=== PATIENT | female | born 1955 | race Caucasian/White ===

== ENCOUNTER 2017-11-24 06:56 | Day surgery (SDC) | payer OTHER ==
[~2017-11-24] VITALS: Ht 170.2 cm; Wt 8484.0 kg
[~2017-11-24 06:56] MED LIST: ADULT ASPIRIN R81 MG; ATEN25; CHLO25B; EZET10; GABA100; LOSARTAN POTAS100 MG
== END 2017-11-24 09:14 | disposition home or self-care (01) ==
LOC: ORSCSDS 06:56
PROVIDERS: Internal Medicine Gastroenterology
PROC: 0DBH8ZX Excision of Cecum, Via Natural or Artificial Opening Endoscopic, Diagnostic (ICD-10-PCS; principal; 2017-11-24 08:30)
PROC: 0DBK8ZX Excision of Ascending Colon, Via Natural or Artificial Opening Endoscopic, Diagnostic (ICD-10-PCS; principal; 2017-11-24 08:30)
PROC: 0DBL8ZX Excision of Transverse Colon, Via Natural or Artificial Opening Endoscopic, Diagnostic (ICD-10-PCS; principal; 2017-11-24 08:30)
PROC: 0DBE8ZX Excision of Large Intestine, Via Natural or Artificial Opening Endoscopic, Diagnostic (ICD-10-PCS; principal; 2017-11-24 08:30)
DX: R19.7 Diarrhea, unspecified (principal); D12.2 Benign neoplasm of ascending colon; K63.5 Polyp of colon; K64.8 Other hemorrhoids; K57.30 Diverticulosis of large intestine without perforation or abscess without bleeding; K62.5 Hemorrhage of anus and rectum; R10.32 Left lower quadrant pain; Z83.71 Family history of colonic polyps; E78.2 Mixed hyperlipidemia; I10 Essential (primary) hypertension; E22.1 Hyperprolactinemia; F34.1 Dysthymic disorder; Z79.82 Long term (current) use of aspirin; Z79.899 Other long term (current) drug therapy; Z87.891 Personal history of nicotine dependence
CPT/HCPCS: 88305; J0330; J1980; J2405; J7120

== ENCOUNTER → 2023-01-27 | Outpatient (CLI) | payer OTHER ==
[~2023-01-27] MED LIST changes: +AMLO5 PO; +ATEN25 PO; +HYDR1TAB94 PO; +LEVO750 PO; +SPIR25 PO
[2023-01-27 08:47] LABS: BASOPHILS ABSOLUTE AUTO 0.15 K/mm3 (0.00-0.23); BASOPHILS PERCENT AUTO 1 % (0-2); EOSINOPHILS ABSOLUTE AUTO 0.11 K/mm3 (0.00-0.68); EOSINOPHILS PERCENT AUTO 1 % (0-6); Hematocrit 45.1 % (33.0-51.0); Hemoglobin 15.6 g/dL (11.5-16.0); IMMATURE GRAN ABSOLUTE AUTO 0.23 K/mm3 (0.00-0.10); IMMATURE GRAN PERCENT AUTO 1 % (0-1); LYMPHOCYTES ABSOLUTE AUTO 4.29 K/mm3 (0.84-5.20); LYMPHOCYTES PERCENT AUTO 20 % (21-46); MONOCYTES ABSOLUTE AUTO 1.95 K/mm3 (0.16-1.47); MONOCYTES PERCENT AUTO 9 % (4-13); Mean Corpuscular HGB 29.9 pg (26.0-34.0); Mean Corpuscular HGB Conc 34.6 g/dL (31.5-36.5); Mean Corpuscular Volume 86 fL (80-100); NEUTROPHILS ABSOLUTE AUTO 14.33 K/mm3 (1.96-9.15); NEUTROPHILS PERCENT AUTO 68 % (41-73); Platelet Count 678 K/mm3 (150-400); RDW Coefficient Variation 13.3 % (11.7-14.2); RDW Standard Deviation 41.1 fL (35.1-46.3); Red Blood Cell Count 5.22 M/mm3 (3.80-5.20); White Blood Cell Count 21.06 K/mm3 (4.00-11.30)
[2023-01-27 09:00] LABS: Albumin, Blood 3.1 g/dL (3.4-5.0); Albumin/Globulin Ratio 0.7 (0.8-1.8); Bilirubin, Total 0.4 mg/dL (0.1-1.0); Calcium, Blood 9.8 mg/dL (8.5-10.1); Creatinine, Blood 0.91 mg/dL (0.40-1.00); Globulin, Blood 4.2 g/dL (2.2-4.0); Potassium, Blood 3.3 mmol/L (3.5-5.5); Total Protein, Blood 7.3 g/dL (6.4-8.2)
== END | disposition home or self-care (01) ==
LOC: LAB SHORT 08:40 → LAB 08:40
PROVIDERS: Family Medicine
DX: R10.32 Left lower quadrant pain (principal)
CPT/HCPCS: 80053; 83690; 85025

== ENCOUNTER 2023-02-05 03:50 | Inpatient (IN) | payer OTHER ==
[2023-02-05] VITALS (14 sets, daily range): BP systolic 95–156; BP diastolic 70–83
[~2023-02-05] VITALS: Ht 170.2 cm; Wt 75.8 kg
[~2023-02-05 03:50] MED LIST changes: +AMOCLA875 PO; +Acetaminophen650 M1 PO; +POLYETHYLENE G500 G1 PO; +VISBIOME 112.51 EACH PO
[2023-02-05 04:17] LABS: BASOPHILS ABSOLUTE AUTO 0.07 K/mm3 (0.00-0.23); BASOPHILS PERCENT AUTO 1 % (0-2); EOSINOPHILS ABSOLUTE AUTO 0.04 K/mm3 (0.00-0.68); EOSINOPHILS PERCENT AUTO 0 % (0-6); Hematocrit 45.3 % (33.0-51.0); Hemoglobin 15.3 g/dL (11.5-16.0); IMMATURE GRAN ABSOLUTE AUTO 0.05 K/mm3 (0.00-0.10); IMMATURE GRAN PERCENT AUTO 1 % (0-1); LYMPHOCYTES PERCENT AUTO 17 % (21-46); MONOCYTES ABSOLUTE AUTO 0.84 K/mm3 (0.16-1.47); MONOCYTES PERCENT AUTO 8 % (4-13); Mean Corpuscular HGB Conc 33.8 g/dL (31.5-36.5); Mean Corpuscular Volume 86 fL (80-100); Mean Platelet Volume 9.1 fL (9.1-12.4); NEUTROPHILS PERCENT AUTO 74 % (41-73); Platelet Count 573 K/mm3 (150-400); RDW Coefficient Variation 13.3 % (11.7-14.2); RDW Standard Deviation 41.7 fL (35.1-46.3); Red Blood Cell Count 5.27 M/mm3 (3.80-5.20)
[2023-02-05 04:38] LABS: Albumin/Globulin Ratio 0.6 (0.8-1.8); Bilirubin, Total 0.8 mg/dL (0.1-1.0); Bun/Creatinine Ratio 8.5 (12.0-20.0); Creatinine, Blood 0.71 mg/dL (0.40-1.00); Globulin, Blood 4.7 g/dL (2.2-4.0); Total Protein, Blood 7.7 g/dL (6.4-8.2)
--- NOTE | 2023-02-05 08:50 | NUR ---
ASSUMED CARE REPORT FROM LEELEE ALMENDAREZ IN ED, WAITING FOR PT TO ARRIVE TO MEDICAL FLOOR
--- NOTE | 2023-02-05 12:38 | NUR ---
PT INTO SDS VIA SRUTHI. History, Chart, Medications and Allergies reviewed before start of procedure. Pre-Op teaching done. Pt verbalizes understanding. Patient confirms NPO status and agrees with scheduled surgery. Lungs clear T/O to Auscultation. PT HAS 1 20 G IV IN RAC FLUSHES EASILY AND 1 20G IV IN LAC FLUSHES EASILY. LAC IV IS A FIELD START AND PT STATES THAT "IT WAS BURING EARLIER" BUT DENIES PAIN NOW W/FLUSH, NO INFILTRATION NOTED.
--- NOTE | 2023-02-05 17:41 | NUR ---
SHIFT SUMMARY PT WAS EDUCATED REGARDING FIRE SAFETY, DENIES HAVING ANY SOURCE OF IGNITION ON PERSON, VISITORS DENY THE SAME. PT WAS NPO FOR MY SHIFT, WENT TO SURGERY AND REMAINED UNTIL THIS NOTE.
--- NOTE | 2023-02-05 18:40 | NUR ---
ARRIVAL TO ROOM 231 PATIENT TO ROOM VIA GURNEY, TRANSFERRED TO BED VIA SLIDER SHEET. X4 LAP SITES TO ABDOMEN W/ DERMABOND, C/D/I. OSTOMY TO LEFT SIDE, STOMA APPEARS PINK AND MOIST, NO OUTPUT. SCANT AMOUNT OF RECTAL BLEEDING NOTED ON PAD BENEATH PATIENT. GARCES IN PLACE DRAINING TO GRAVITY, STAT LOCK PLACED AT THIS TIME. PATIENTS MAIN COMPLAINT AT THIS TIME IS ABDOMINAL & RECTAL CRAMPING. ORIENTED TO ROOM & CALL LIGHT, NOTIFIED OF ROOM TRANSFER PER PATIENTS REQUEST. REPORT GIVEN TO SUGEY ALMENDAREZ.
[2023-02-06 03:51] VITALS: BP 131/59
[2023-02-06 04:21] LABS: Hematocrit 36.6 % (33.0-51.0); Hemoglobin 12.1 g/dL (11.5-16.0); Mean Corpuscular HGB 28.9 pg (26.0-34.0); Mean Corpuscular HGB Conc 33.1 g/dL (31.5-36.5); Mean Corpuscular Volume 87 fL (80-100); Mean Platelet Volume 9.1 fL (9.1-12.4); Platelet Count 479 K/mm3 (150-400); RDW Coefficient Variation 13.4 % (11.7-14.2); RDW Standard Deviation 42.9 fL (35.1-46.3); Red Blood Cell Count 4.19 M/mm3 (3.80-5.20); White Blood Cell Count 16.44 K/mm3 (4.00-11.30)
[2023-02-06 04:51] LABS: Bun/Creatinine Ratio 14.9 (12.0-20.0); Calcium, Blood 8.7 mg/dL (8.5-10.1); Creatinine, Blood 0.67 mg/dL (0.40-1.00); Potassium, Blood 4.1 mmol/L (3.5-5.5)
--- NOTE | 2023-02-06 07:11 | NUR ---
SUMMARY PT REPORTS ADEQUATE PAIN CONTROL USING DILAUID.GARCES WITH 350 ML TONIGHT. WILL NEED MONITORING CLOSELY ON OUTPUT.PT REPORTED NAUSEA INITIALLY POSTOP, BUT VERB NO FURTHER TONIGHT.OSTOMY WITH DRK RED FLUID OUTPUT ONLY.
[2023-02-06 07:38] VITALS: BP 126/62
[2023-02-06 15:39] VITALS: BP 108/59
--- NOTE | 2023-02-06 18:59 | NUR ---
SHIFT SUMMARY PT A&OX4, VSS/RA, MEGAN PO CLD (WILL ADV TO REG IN AM PER PT REQ - WANTED TO TAKE IT SLOW TODAY), VOIDING, AMB SBA, UP TO CHAIR T/O SHIFT, PAIN MANAGED. POD1 LOY LAP SIG COLECTOMY W/COLOSTOMY, LAP SITES CDI, OSTOMY WITH BROWN STOOL OUT. WILL REPORT TO ONCOMING NOC RN.
[2023-02-06 19:58] VITALS: BP 118/59
--- NOTE | 2023-02-07 00:23 | NUR ---
REPORT GIVEN TO SUGEY TO ASSUME CARE OF PT AT THIS TIME. PT DENIES NEEDS AT THIS TIME AND IS RESTING IN BED. FIRE RISK ASSESSED THIS SHIFT, PT EDUCATED ON FIRE RISK AND IGNITION SOURCES. PT DENIES HAVING IGNITION SOURCES.
--- NOTE | 2023-02-07 01:32 | NUR ---
ASSUMED CARE OF PT.
[2023-02-07 03:04] VITALS: BP 133/65
--- NOTE | 2023-02-07 03:47 | NUR ---
SUMMARY PATIENT MORE ALERT AND DIRECTABLE THIS AM THAN PREVIOUS IN THE SHIFT. UP TO THE BSC TO VOID 1 ASSIST, EPIDURAL DRESSING REENFORCED. PATIENT REPORTS NO ACUTE EVENTS THIS SHIFT, VSS. IV FLUIDS AND ABX RUNNING. SITTER IN ROOM AND BED ALARM ON. WILL REPORT TO DAY NURSE.
[2023-02-07 05:08] LABS: Hematocrit 33.9 % (33.0-51.0); Hemoglobin 11.4 g/dL (11.5-16.0); Mean Corpuscular HGB 29.4 pg (26.0-34.0); Mean Corpuscular HGB Conc 33.6 g/dL (31.5-36.5); Mean Corpuscular Volume 87 fL (80-100); Mean Platelet Volume 9.3 fL (9.1-12.4); Platelet Count 459 K/mm3 (150-400); RDW Coefficient Variation 13.8 % (11.7-14.2); RDW Standard Deviation 43.7 fL (35.1-46.3); Red Blood Cell Count 3.88 M/mm3 (3.80-5.20); White Blood Cell Count 12.03 K/mm3 (4.00-11.30)
[2023-02-07 05:25] LABS: Bun/Creatinine Ratio 18.1 (12.0-20.0); Calcium, Blood 8.6 mg/dL (8.5-10.1); Creatinine, Blood 0.66 mg/dL (0.40-1.00); Potassium, Blood 3.7 mmol/L (3.5-5.5)
--- NOTE | 2023-02-07 06:55 | NUR ---
SUMMARY PT TEARFUL THIS AM OVER OSTOMY. ENCOURAGED.
[2023-02-07 07:39] VITALS: BP 125/64
[2023-02-07 14:33] VITALS: BP 118/66
[2023-02-07 19:05] VITALS: BP 106/58
--- NOTE | 2023-02-07 19:49 | NUR ---
SHIFT SUMMARY PT A&OX4, VSS/RA, MEGAN PO REG DIET - INCREASED IN INTAKE FOR LUNCH AND DINNER, PAIN MANAGED, AMB SBA TO BRP, VOIDING, SHOWERED TODAY/NEW APPLIANCE APPLIED, PT SEEMS MORE AT EASE WITH MANAGING OSTOMY, [employer] ORDERED TODAY, EDU AND ENC PT TO WATCH VIDEOS ON [employer] WEBSITE. WILL REPORT TO ONCEVERETTE OJEDA RN.
--- NOTE | 2023-02-08 03:06 | NUR ---
SHIFT SUMMARY PT HAS RESTED WELL T/O NIGHT. INDEP TO RESTROOM. PT INDEPENDENTLY BURPING OSTOMY AND STILL ENCOURAGING AND EDUCATING ON EMPTYING OSTOMY. DARK BROWN STOOL PRESENT IN BAG. LAP SITES X3 TO ABD REMAIN CDI. IV SL + ABX. MEGAN REG DIET. 1 ROXICODONE + TYLENOL FOR PAIN MANAGEMENT. REPORT GIVEN TO ARELI ALMENDAREZ TO ASSUME CARE AT THIS TIME. CALL LIGHT WITHIN REACH.
[2023-02-08 04:44] LABS: Hematocrit 33.5 % (33.0-51.0); Hemoglobin 10.8 g/dL (11.5-16.0); Mean Corpuscular HGB 28.6 pg (26.0-34.0); Mean Corpuscular HGB Conc 32.2 g/dL (31.5-36.5); Mean Corpuscular Volume 89 fL (80-100); Mean Platelet Volume 9.2 fL (9.1-12.4); Platelet Count 445 K/mm3 (150-400); RDW Coefficient Variation 13.6 % (11.7-14.2); RDW Standard Deviation 44.6 fL (35.1-46.3); Red Blood Cell Count 3.77 M/mm3 (3.80-5.20); White Blood Cell Count 9.38 K/mm3 (4.00-11.30)
[2023-02-08 04:56] VITALS: BP 127/66
[2023-02-08 07:48] VITALS: BP 128/64
[2023-02-08 14:31] LABS: Source, Urine Clean Catch
[2023-02-08 14:37] LABS: Appearance, Urine Clear (Clear); Bilirubin, Urine Neg (Neg); Blood, Urine 5+ (Neg); Color, Urine Amber (P-Yellow); Glucose Qualitative, Urine Neg (Neg); Ketones, Urine 3+ (Neg); Leukocyte Esterase, Urine 1+ (Neg); Nitrite, Urine Neg (Neg); Protein, Urine 2+ (Neg); Specific Gravity, Urine 1.025 (1.003-1.022); Urobilinogen, Urine NORM (Normal)
[2023-02-08 14:50] LABS: Bacteria Mod /hpf; Hyaline Casts 0-2 /lpf (0-2); Red Blood Cells, Urine TNTC /hpf (0-2); Squamous Epithelial Cells Mod /hpf (Few); Transitional Epithelial Cells Few /hpf (0-Rare); White Blood Cells, Urine 25-50 /hpf (0-5)
[2023-02-08 14:52] LABS: Calcium Oxalate Crystals Mod /hpf
[2023-02-08 15:04] VITALS: BP 126/61
--- NOTE | 2023-02-08 16:37 | NUR ---
SHIFT SUMMARY POD 3 ROBO LAP SIGMOID COLECTOMY PT PAIN CONTROLLED PER EMAR. SHE HAS BEEN UP INDEPENDTLY IN ROOM AND AMBULATING IN THE HALLS. TOLERATING DIET WELL. SHE HAS BEEN BURPING AND EMPTYING HER OSTOMY WITH ENCOURAGEMENT. PT AND SPOUSE ACTIVELY RESEARCHING OSTOMY CARE AND ASKING MANY QUESTIONS. CONTINUING TO EDUCATE T/O SHIFT. SOFT BROWN OUTPUT DURING SHIFT. CONTINUES TO HAVE SLIGHT BLEEDING WITH URINATION. REPORTS SOME DISCOMFORT WITH VOIDING. PLAN IS TO CONTINUE WITH EDUCATION AND DISCHARGE AFTE THE WEEKEND.
[2023-02-08 20:45] VITALS: BP 128/63
[2023-02-09 03:26] VITALS: BP 128/68
[2023-02-09 05:18] LABS: Hematocrit 30.4 % (33.0-51.0); Hemoglobin 10.1 g/dL (11.5-16.0); Mean Corpuscular HGB 28.9 pg (26.0-34.0); Mean Corpuscular HGB Conc 33.2 g/dL (31.5-36.5); Mean Corpuscular Volume 87 fL (80-100); Mean Platelet Volume 9.4 fL (9.1-12.4); Platelet Count 464 K/mm3 (150-400); RDW Coefficient Variation 13.4 % (11.7-14.2); RDW Standard Deviation 42.2 fL (35.1-46.3); White Blood Cell Count 8.12 K/mm3 (4.00-11.30)
--- NOTE | 2023-02-09 05:40 | NUR ---
SHIFT SUMMARY NO ACUTE CHANGES NOTED THROUGH THE NIGHT, PT REMAINS A&O X4, ON RA, VSS, PAIN MNGD WITH PO MEDS, TOLERATING PO INTAKE, PT HAS EMPTIED OSTOMY ON HER OWN, OSTOMY IS PRODUCING DARK BROWN LIQUID STOOL, URINE REMAINS TEA COLORED, NO INCREASE IN VAGINAL BLEEDING PER PT, INDEPENDENT IN ROOM, WCTM & REPORT TO DAY RN, CALL LIGHT IN REACH.
[2023-02-09 05:57] LABS: Bun/Creatinine Ratio 13.5 (12.0-20.0); Calcium, Blood 8.5 mg/dL (8.5-10.1); Creatinine, Blood 0.59 mg/dL (0.40-1.00); Potassium, Blood 3.5 mmol/L (3.5-5.5)
[2023-02-09 07:16] VITALS: BP 137/71
[2023-02-09 15:34] VITALS: BP 125/67
--- NOTE | 2023-02-09 16:34 | NUR ---
SHIFT SUMMARY POD 4 ROBO LAP SIG COLECTOMY PT REPORTS PAIN MANAGED PER EMAR, SHE HAS BEEN EMPTYING AND BURPING INDEPENDENTLY. PT AND SPOUSE ASKING LOTS OF QUESTIONS ABOUT CHANGING AND ARE LOOKING FORWARD TO MORE EDUCATION PRIOR TO DISCHARGE. LAP SITES REMAIN CDI, STOMA PINK AND BEEFY WITH SOFT, BROWN OUTPUT. PT CONTINUES TO HAVE DISCOMFORT WITH URINATION, SHE STATES IT IMPROVES WHEN SHE DRINKS MORE WATER. CT SCAN DONE TODAY.
[2023-02-09 20:22] VITALS: BP 133/67
[2023-02-10 05:32] VITALS: BP 149/84
--- NOTE | 2023-02-10 05:56 | NUR ---
SHIFT SUMMARY NO ACUTE CHANGES THROUGH THE NIGHT, PT IS A&O X4, INDEPENDENT IN THE ROOM, VSS, ON RA, TOLERATING PO INTAKE, VOIDING WNL, NO BLOOD REPORTED DURING URINATION , DARK BROWN LIQUID STOOL NOTED IN OSTOMY, PT IS MANAGING OSTOMY, ARCADIO RN WILL BE IN TODAY TO FINALIZE OSTOMY EDUCATION. PAIN MANAGED WITH 5 MG OXYCODONE/TYLENOL PER EMAR. PT IS RESTING QUIETLY THIS MORNING IN BED, RESP UNLABORED, CALL LIGHT IN REACH.
[2023-02-10 07:04] VITALS: BP 138/76
[2023-02-10] MEDS ORDERED: OXAYDO5 M1 PO (11:47)
--- NOTE | 2023-02-10 13:14 | NUR ---
discharged reviewed dc instructions w/pt; verbalized understanding. dc'd iv, catheter intact. pt left unit in wc w/possessions, ostomy supplies and dc paperwork in hand, accompanied by spouse to car outside.
== END 2023-02-10 12:55 | disposition home or self-care (01) | DRG 330 ==
LOC: ER 03:50 → ICUE 06:16 → MEDS 06:16 → SURS 19:00
PROVIDERS: Emergency Medicine; Internal Medicine; Surgery; ADMIT Internal Medicine
PROC: 0D1N4Z4 Bypass Sigmoid Colon to Cutaneous, Percutaneous Endoscopic Approach (ICD-10-PCS; 2023-02-05)
PROC: 0UN44ZZ Release Uterine Supporting Structure, Percutaneous Endoscopic Approach (ICD-10-PCS; 2023-02-05)
PROC: 0UNF4ZZ Release Cul-de-sac, Percutaneous Endoscopic Approach (ICD-10-PCS; 2023-02-05)
PROC: 0DBN4ZZ Excision of Sigmoid Colon, Percutaneous Endoscopic Approach (ICD-10-PCS; 2023-02-05)
PROC: 8E0W4CZ Robotic Assisted Procedure of Trunk Region, Percutaneous Endoscopic Approach (ICD-10-PCS; 2023-02-05)
PROC: 8E0W4CZ Robotic Assisted Procedure of Trunk Region, Percutaneous Endoscopic Approach (ICD-10-PCS; 2023-02-05)
PROC: 0U7 Female Reproductive System, Dilation (ICD-10-PCS; principal; 2023-02-05 12:00)
DX: K57.20 Diverticulitis of large intestine with perforation and abscess without bleeding (principal); K56.600 Partial intestinal obstruction, unspecified as to cause; I10 Essential (primary) hypertension; E78.5 Hyperlipidemia, unspecified; R31.9 Hematuria, unspecified; N73.6 Female pelvic peritoneal adhesions (postinfective); N83.312 Acquired atrophy of left ovary; N95.2 Postmenopausal atrophic vaginitis; Z93.3 Colostomy status; Z90.721 Acquired absence of ovaries, unilateral; Z90.79 Acquired absence of other genital organ(s); Z90.49 Acquired absence of other specified parts of digestive tract; Z90.10 Acquired absence of unspecified breast and nipple; Z88.2 Allergy status to sulfonamides; Z86.018 Personal history of other benign neoplasm; Z79.2 Long term (current) use of antibiotics; Z79.899 Other long term (current) drug therapy; Z87.19 Personal history of other diseases of the digestive system; Z98.51 Tubal ligation status
CPT/HCPCS: 36415; 74177; 74178; 80048; 80053; 81001; 83690; 85025; 85027; 87086; 88307; 94760; 96361; 96365-59; 96375; 99285-25; A9270; J1100; J1170; J1650; J1885; J2185; J2270; J2405; J2543; J2704; J3010; J7030; J7050; J7120; Q9967

== ENCOUNTER 2023-08-05 09:30 | Day surgery (SDC) | payer OTHER ==
[~2023-08-05] VITALS: Ht 170.2 cm; Wt 80.4 kg
[~2023-08-05 09:30] MED LIST changes: +OXAYDO5 M1 PO
[2023-08-05] MEDS ORDERED: Aspir 8181 MG PO (09:51)
[2023-08-05] MEDS ORDERED: IBUP200 (10:05)
[2023-08-05] MEDS ORDERED: LISI20 PO (10:53)
[2023-08-05 12:06] VITALS: BP 100/59
--- NOTE | 2023-08-05 12:08 | NUR ---
08/05/23 1208 Alpa Thurman IV DC'D, CATH INTACT. PT TOLERATED WELL. GAUZE/COBAN IN PLACE
== END 2023-08-05 12:08 | disposition home or self-care (01) ==
LOC: ORSCSDS 09:30
PROVIDERS: Surgery
PROC: 0DJD8ZZ Inspection of Lower Intestinal Tract, Via Natural or Artificial Opening Endoscopic (ICD-10-PCS; principal; 2023-08-05 11:00)
PROC: 0DBM8ZX Excision of Descending Colon, Via Natural or Artificial Opening Endoscopic, Diagnostic (ICD-10-PCS; principal; 2023-08-05 11:00)
PROC: 0DBK8ZX Excision of Ascending Colon, Via Natural or Artificial Opening Endoscopic, Diagnostic (ICD-10-PCS; principal; 2023-08-05 11:00)
PROC: 0DBH8ZX Excision of Cecum, Via Natural or Artificial Opening Endoscopic, Diagnostic (ICD-10-PCS; principal; 2023-08-05 11:00)
DX: Z12.11 Encounter for screening for malignant neoplasm of colon (principal); Z86.010 Personal history of colon polyps; Z87.19 Personal history of other diseases of the digestive system; Z93.3 Colostomy status; D12.0 Benign neoplasm of cecum; D12.2 Benign neoplasm of ascending colon; K63.5 Polyp of colon; K57.30 Diverticulosis of large intestine without perforation or abscess without bleeding; E78.5 Hyperlipidemia, unspecified; I10 Essential (primary) hypertension; Z79.899 Other long term (current) drug therapy; Z79.82 Long term (current) use of aspirin; Z87.891 Personal history of nicotine dependence
CPT/HCPCS: 88305; J2405; J2704; J7120

== ENCOUNTER 2023-08-06 05:42 | Inpatient (IN) | payer OTHER ==
[2023-08-06] VITALS (18 sets, daily range): BP systolic 111–140; BP diastolic 60–85
[~2023-08-06] VITALS: Ht 170.2 cm; Wt 81.4 kg
[~2023-08-06 05:42] MED LIST changes: +Aspir 8181 MG PO; +IBUP200; +LISI20 PO
[2023-08-06] MEDS ORDERED: Acetaminophen 500 MG Tab PO SCH (06:20)
[2023-08-06] MEDS ORDERED: CefOXitin Sodium 2,000 MG in NS 100 ML IV SCH ×2 (06:20→11:05)
[2023-08-06] MEDS ORDERED: Lactated Ringer's 1,000 ML IV SCH (06:20)
[2023-08-06] MEDS ORDERED: Heparin Sodium,Porcine 5,000 UNIT/0.5 ML SDV SC ONE (06:25)
[2023-08-06] MEDS ORDERED: Indocyanine Green 25 MG Vial IV ONE (06:25)
--- NOTE | 2023-08-06 06:45 | NUR ---
Ambulatory in Day Surgery History, Chart, Medications and Allergies reviewed before start of procedure.Lungs clear T/O to Auscultation. Patient confirms NPO status and agrees with scheduled surgery. Patient reports completing Chlorhexadine shower X2 prior to admission to hospital.Surgical site prepped with 2% Chlorhexidine cloth wipe.
[2023-08-06] MEDS ORDERED: FentaNYL Citrate 50 MCG/ML 2 ML Injection ONE ×2 (06:53→12:12)
[2023-08-06] MEDS ORDERED: propofoL 20 ML IV ONE (06:53)
[2023-08-06] MEDS ORDERED: Sugammadex Sodium 200 MG/2ML SDV (100 MG/ML) ONE (06:53)
[2023-08-06] MEDS ORDERED: Lidocaine HCl 2% 20 ML MDV ONE (06:55)
[2023-08-06] MEDS ORDERED: Ondansetron HCl 2 MG / ML 2ML Vial IV PRN ×2 (06:55→12:05)
[2023-08-06] MEDS ORDERED: Midazolam HCl 1MG / ML 2ML Vial IV PRN (06:55)
[2023-08-06] MEDS ORDERED: Dexamethasone Sod Phos 10 MG/ML 1ML VIAL ONE (06:55)
[2023-08-06] MEDS ORDERED: Rocuronium Bromide 10 MG/ML 5ML Injection IV ONE (06:55)
[2023-08-06] MEDS ORDERED: Ondansetron HCl 2 MG / ML 2ML Vial ONE (06:55)
[2023-08-06] MEDS ORDERED: Metoclopramide HCl 5MG / ML 2ML Vial IV PRN (06:55)
[2023-08-06] MEDS ORDERED: Lidocaine HCl 1% 5 ML SYR INJ ONE (07:00)
[2023-08-06] MEDS ORDERED: FentaNYL Citrate 50 MCG/ML 2 ML Injection IV PRN ×3 (07:00)
[2023-08-06] MEDS ORDERED: HYDROmorphone HCl/Pf 1MG SYR IV PRN ×2 (07:00→12:05)
[2023-08-06] MEDS ORDERED: Bupivacaine 0.5% HCl 5 MG/ML 30MLVIAL ONE (07:15)
[2023-08-06] MEDS ORDERED: Glycopyrrolate 0.2 MG/ML 5ML VIAL ONE (08:01)
[2023-08-06] MEDS ORDERED: Acetaminophen 325 MG TABLET PO PRN (12:05)
[2023-08-06] MEDS ORDERED: FLU VACC QS2023-24(6MOS UP)/PF 60 MCG/0.5 ML SYRINGE IM SCH (12:05)
[2023-08-06] MEDS ORDERED: OxyCODONE HCL 5 MG TAB PO PRN (12:05)
--- NOTE | 2023-08-06 13:15 | NUR ---
PATIENT ARRIVED FROM PACU TODAY. POD 0 LAP COLOSTOMY REVERSAL PATIENT IS A&OX4. PATIENT DENIES PAIN AT THIS TIME. HER ABD HAS X3 LAP SITES WITH WOUND GLUE THAT ARE C/D/I. HER LLQ ABD HAS A MEPLIEX WHERE THE OSTOMY WAS THAT IS ALSO C/D/I. PATIENT DENIES NAUSEA OR VOMITING AT THIS TIME. GARCES IS DRAINING PER GRAVITY. SHE IS TOLERATING SMALL AMOUNTS OF PO INTAKE OF CLEAR FLUIDS. SHE IS LAYING IN BED WITH CALL LIGHT IN REACH AND AT BEDSIDE.
--- NOTE | 2023-08-06 16:00 | NUR ---
SHIFT SUMMARY: POD 0 COLOSTOMY REVERSAL PATIENT IS A&OX4. PATIENTS PAIN IS MANAGED WITH PO OXY AT THIS TIME. HER ABD HAS X3 LAP SITES WITH WOUND GLUE THAT ARE C/D/I WELL X1 ABD SITE FROM OLD OSTOMY THAT HAS MEPLIEX IN PLACE THAT IS ALSO C/D/I. ABD IS TENDER TO PALPATE WITH HYPOACTIVE BOWEL TONES. PATIENT IS TOLERATING SMALL AMOUNTS OF CLEAR LIQUIDS PO. GARCES IS DRAINING PER GRAVITY WITH YELLOW URINE OUTPUT. PATIENT IS LAYING IN BED WITH CALL LIGHT IN REACH.
--- NOTE | 2023-08-06 16:42 | NUR ---
patient has x4 lap sites with wound glue that are c/d/i and her old ostomy site has the mepliex that is c/d/i as well.
[2023-08-06] MEDS ORDERED: Magnesium Oxide 400 MG Tab PO SCH (21:00)
[2023-08-07 04:16] LABS: Hematocrit 37.5 % (33.0-51.0); Hemoglobin 12.7 g/dL (11.5-16.0); Mean Corpuscular HGB 29.9 pg (26.0-34.0); Mean Corpuscular HGB Conc 33.9 g/dL (31.5-36.5); Mean Corpuscular Volume 88 fL (80-100); Platelet Count 342 K/mm3 (150-400); RDW Standard Deviation 44.5 fL (35.1-46.3); Red Blood Cell Count 4.25 M/mm3 (3.80-5.20); White Blood Cell Count 12.23 K/mm3 (4.00-11.30)
[2023-08-07 04:21] VITALS: BP 122/64
[2023-08-07 04:53] LABS: Bun/Creatinine Ratio 16.2 (12.0-20.0); Calcium, Blood 8.9 mg/dL (8.5-10.1); Creatinine, Blood 0.74 mg/dL (0.40-1.00); Magnesium, Blood 1.8 mg/dL (1.6-2.4); Potassium, Blood 3.5 mmol/L (3.5-5.5)
[2023-08-07 07:43] VITALS: BP 133/71
--- NOTE | 2023-08-07 07:48 | NUR ---
SUMMARY PT WITH REPORT OF INIMAL DISCOMFORT LAST NIGHT.NO C/O NAUSEA.TOLERATING PO FLUIDS AND BIES JELLO FOR PO PAIN MED X 1. GARCES STARTED WITH SMALL AMNTS MABER URINE WHICH IS IMPROVING TO CLEAR YELLOW WITH ENC TO DRINK GATORADE.
--- NOTE | 2023-08-07 08:12 | NUR ---
DR GALEANA IN TO SEE PT.
[2023-08-07] MEDS ORDERED: Atenolol 25 MG Tab PO SCH (09:00)
[2023-08-07] MEDS ORDERED: Enoxaparin 40 MG/0.4 ML SYR SC SCH (09:00)
[2023-08-07] MEDS ORDERED: Spironolactone 25 MG Tab PO SCH (09:00)
[2023-08-07] MEDS ORDERED: AmLODIPine Besylate 5 MG Tab PO SCH (09:00)
[2023-08-07 14:18] VITALS: BP 112/61
--- NOTE | 2023-08-07 18:03 | NUR ---
summary no acute changes t/o shift. pt ambulated in doshi. tolerating small amounts of full lqiuds. medicated per orders for abdminal pain. has denied nausea. voiding after medrano dc'd. call light in reach.
[2023-08-07 18:35] VITALS: BP 125/64
[2023-08-08 03:47] VITALS: BP 128/65
[2023-08-08 07:10] VITALS: BP 134/67
--- NOTE | 2023-08-08 07:19 | NUR ---
SHIFT SUMMARY NOC. PT POD [address] GALEANA. PT LAP SITES AND DRESSING FROM PREVIOUS OSTOMY ARE C/D/I. PT IS VOIDING URINE AND TOLERATING PO INTAKE. PT AMBULATED TO THE BATHROOM WITH STANDBY ASSIST X1. PT MEDICATED FOR PAIN WITH RELIEF. PT RESTED WITH EYES CLOSED AND CALL LIGHT IN REACH.
[2023-08-08 14:37] VITALS: BP 134/83
--- NOTE | 2023-08-08 15:57 | NUR ---
02 SATS DROPPED AFTER 0.5MG DILAUDID. PT REC'D 0.5 MG IV DILAUDID PER ORDERS FOR ABD PAIN. AFTERWARD, PT FELL ASLEEP AND SATS DROPPED TO MID 80S. PLACED ON 2L NC AND SATS NOW 96%. CALL LIGHT IN REACH.
--- NOTE | 2023-08-08 16:37 | NUR ---
SUMMARY PT HAS HAD A TOTAL OF THREE BMS THIS SHIFT. PT NOT FEELING WELL THIS AFTERNOON; MEDICATED PER ORDERS FOR NAUSEA AND PAIN. PT SATS DROPPED WHEN WENT TO SLEEP AFTER IV DILAUDID GIVEN PER ORDERS; PLACED ON 2L NC. SATS NOW MID TO HIGH 90S. PT WALKED IN YI ONCE THIS SHIFT. DIET BACKED TO CLEAR LIQUIDS. PT TOLERATING SM AMOUNTS, STATES THINGS "DON'T TASTE RIGHT." PT RESTING IN BED, CALL LIGHT IN REACH. TURNING CARE OVER TO ELIEL Mcgovern
--- NOTE | 2023-08-08 16:59 | NUR ---
THIS NURSE IS ASSUMING CARE OF PATIENT AFTER RECIEVING REPORT FROM GABBIE RN. THIS NURSE WENT TO CHECK ON PATIENT AND INTRODUCE MYSELF TO PATIENT SAYING THAT THIS NURSE WOULD BE ASSUMING CARE FROM GABBIE. PATIENT VERBALIZED UNDERSTANDING WITH NO NEEDS OR QUESTIONS AT THIS TIME. PATIENTS ABD HAS THE X4 LAP SITES WITH WOUND GLUE THAT ARE C/D/I WITH HER OLD OSTOMY INCISION HAS A MEPLIEX THAT IS ALSO C/D/I. PATIENT IS CURRENTLY LAYING IN BED WITH CALL LIGHT IN REACH AND AT BEDSIDE.
[2023-08-08 20:36] VITALS: BP 136/65
[2023-08-09 03:29] VITALS: BP 112/61
--- NOTE | 2023-08-09 06:38 | NUR ---
SHIFT SUMMARY PT IS POD#3 FOR A ROBOTIC LAPAROSCOPIC REVERSAL OF AN END COLOSTOMY. PT'S LAP SITES ARE C/D/I. PT HAS BEEN ABLE TO TOLERATE HER CLEAR LIQUID DIET THIS SHIFT W/O BECOMING NAUSEOUS. ONLY PO MEDS GIVEN THIS SHIFT FOR PAIN. VITAL SIGNS HAVE BEEN STABLE THROUGHOUT THE SHIFT AND THE PT HAS BEEN GETTING UP INDEPENDENTLY TO USE THE BATHROOM W/NO ISSUES. NO ACUTE EVENTS OVERNIGHT. BED IS IN LOWEST POSITION, CALL LIGHT IS WITHIN REACH.
[2023-08-09 07:19] VITALS: BP 126/59
[2023-08-09 14:19] VITALS: BP 131/67
[2023-08-09] MEDS ORDERED: Calcium Carbonate 500 MG Tab Chew PO PRN (14:40)
--- NOTE | 2023-08-09 19:40 | NUR ---
SHIFT SUMMARY POD2 LOY LAP COLOSTOMY TAKEDOWN, A/OX4, VSS, TOLERATING CLEARS AND ADVANCING TO FULLS ORDERED AND PATIENT REQUEST, PAIN MANAGED PER EMAR. NO ACUTE EVENTS THIS SHIFT, CALL LIGHT IN REACH.
[2023-08-09 21:48] VITALS: BP 126/68
[2023-08-10 05:07] VITALS: BP 126/62
[2023-08-10 07:14] VITALS: BP 116/67
--- NOTE | 2023-08-10 07:16 | NUR ---
SHIFT SUMMARY POD 3-COLOSTOMY REVERSAL. MEPILEX LLQ CHANGED, 4 LAPSITES TO R SIDE ABD OPEN TO AIR c NO DRAINAGE. AOX4. VSS. AT BEGINNING OF SHIFT PT REPORTED WORSENING ABD PAIN, NAUSEA, FEELING BLOATED, NO FLATUS, STATES NO BM & FEELING SHE WAS GETTING "WORSE". MEDICATED c ZOFRAN, TYLENOL & TUMS & PT REPORTED RELIEF. THIS AM PT REPORTED FEELING "BETTER" & WANTING TO ADVANCE DIET, BUT NOT LIKING THE PUREE SOUP OPTIONS, INFORMED DAY NURSE. CALL LIGHT IN REACH.
[2023-08-10 15:34] VITALS: BP 124/61
--- NOTE | 2023-08-10 18:24 | NUR ---
SHIFT SUMMARY POD3 LOY LAP OSTOMY TAKEDOWN, A/OX4, VSS, TOLERATING PO THOUGH SHE HAS NOT HAD MUCH FOR INTAKE DUE TO HER NOT LIKING HER MENU OPTIONS, PAIN WELL MANAGED, NO BM THIS SHIFT. NO ACUTE EVENTS THIS SHIFT, CALL LIGHT IN REACH
[2023-08-10 19:47] VITALS: BP 133/68
[2023-08-11 03:51] VITALS: BP 121/67
--- NOTE | 2023-08-11 05:27 | NUR ---
POD 5 S/P COLOSTOMY REVERSAL. PT VSS T/O NIGHT. INCISIONS CDI. PO INTAKE MINIMAL, ONLY SIPS OF WATER. ABD REMAINS MOD DISTENDED, BT MORE HYPO THIS AM, PT REP NO FLATUS. PT C/O NAUSEA, AND INC PAIN THIS AM; MED PER EMAR W/REP RELIEF. URINE DARK YELLOW. PT AMB INDEP IN ROOM, MEGAN WELL. PT VERBALIZED FRUSTRATION W/PROLONGED STAY, SUPPORT AND EDUCATION CONT PRN.
[2023-08-11 08:13] VITALS: BP 150/67
[2023-08-11 11:32] LABS: BASOPHILS ABSOLUTE AUTO 0.04 K/mm3 (0.00-0.23); BASOPHILS PERCENT AUTO 0 % (0-2); EOSINOPHILS ABSOLUTE AUTO 0.08 K/mm3 (0.00-0.68); EOSINOPHILS PERCENT AUTO 1 % (0-6); Hematocrit 42.2 % (33.0-51.0); Hemoglobin 14.6 g/dL (11.5-16.0); IMMATURE GRAN ABSOLUTE AUTO 0.04 K/mm3 (0.00-0.10); IMMATURE GRAN PERCENT AUTO 0 % (0-1); LYMPHOCYTES ABSOLUTE AUTO 1.21 K/mm3 (0.84-5.20); LYMPHOCYTES PERCENT AUTO 8 % (21-46); MONOCYTES ABSOLUTE AUTO 1.27 K/mm3 (0.16-1.47); MONOCYTES PERCENT AUTO 8 % (4-13); Mean Corpuscular HGB 29.7 pg (26.0-34.0); Mean Corpuscular HGB Conc 34.6 g/dL (31.5-36.5); Mean Corpuscular Volume 86 fL (80-100); NEUTROPHILS ABSOLUTE AUTO 12.62 K/mm3 (1.96-9.15); NEUTROPHILS PERCENT AUTO 83 % (41-73); Platelet Count 470 K/mm3 (150-400); RDW Coefficient Variation 13.5 % (11.7-14.2); Red Blood Cell Count 4.91 M/mm3 (3.80-5.20); White Blood Cell Count 15.26 K/mm3 (4.00-11.30)
[2023-08-11 11:58] LABS: Albumin, Blood 2.4 g/dL (3.4-5.0); Anion Gap 6 mmol/L (6-16); Blood Urea Nitrogen 24 mg/dL (8-24); Bun/Creatinine Ratio 35.1 (12.0-20.0); CO2, Blood 30 mmol/L (21-32); Calcium, Blood 9.6 mg/dL (8.5-10.1); Chloride, Blood 99 mmol/L (98-108); Creatinine, Blood 0.68 mg/dL (0.40-1.00); Glomerular Filtration Rate 96 (60-); Glucose, Blood 126 mg/dL (70-99); Phosphorus, Blood 2.5 mg/dL (2.5-4.9); Potassium, Blood 3.5 mmol/L (3.5-5.5); Sodium, Blood 135 mmol/L (136-145)
--- NOTE | 2023-08-11 12:01 | NUR ---
PT RESTING IN BED, WENT FOR A WALK IN THE HALLS THIS AM.
--- NOTE | 2023-08-11 12:49 | NUR ---
RESTING IN BED, REFUSED LUNCH, PT HAS NO APPETITE, DENIES ANY NAUSEA AT THIS TIME, ICE CHIPS GIVEN, CONT. TO MONITOR FOR ANY CHANGES.
[2023-08-11 13:29] VITALS: BP 137/70
[2023-08-11 15:03] VITALS: BP 138/70
[2023-08-11] MEDS ORDERED: Lactated Ringer's 500 ML IV ONE (16:00)
[2023-08-11] MEDS ORDERED: Lactated Ringer's 1,000 ML IV SCH (16:00)
[2023-08-11] MEDS ORDERED: Ketorolac Tromethamine 15mg Vial IV SCH (16:00)
--- NOTE | 2023-08-11 18:08 | NUR ---
SUMMARY PT REPORTED NOT FEELING GOOD THIS AM, C/O NAUSEA IN AM, HAS REFUSED ALL TRAYS, HAS ONLY HAD ICE CHIPS AND SMALL SIPS OF WATER, REPORTS NAUSEA WAS "BETTER" AFTER BREAKFAST, AMBULATED DOWN THE HALLS AND IN ROOM, INDEPENDENT TO THE BATHROOM, DENIES PASSING ANY FLATUS, REPORTS "BURPING A LOT" AND ABD FEELS "BLOATED" AND HAVING LOWER ABD "CRAMPING" DR. GALEANA SAW PT THIS AFTERNOON, TORADOL GIVEN ORDERED W/ GOOD RELIEF OF CRAMPING, PT REPORTS FEELING BETTER THIS AFTERNOON, DENIES ANY NAUSEA BUT STILL REFUSED CLEAR LIQUID TRAYS, PT GIVEN PEDIALYTE ORDERED, NO OTHER CHANGES THIS SHIFT.
[2023-08-11 18:59] VITALS: BP 132/66
[2023-08-12] VITALS (22 sets, daily range): BP systolic 98–135; BP diastolic 59–80
[2023-08-12 04:55] LABS: BASOPHILS ABSOLUTE AUTO 0.06 K/mm3 (0.00-0.23); BASOPHILS PERCENT AUTO 0 % (0-2); EOSINOPHILS ABSOLUTE AUTO 0.16 K/mm3 (0.00-0.68); EOSINOPHILS PERCENT AUTO 1 % (0-6); Hematocrit 41.8 % (33.0-51.0); Hemoglobin 14.4 g/dL (11.5-16.0); IMMATURE GRAN PERCENT AUTO 1 % (0-1); LYMPHOCYTES ABSOLUTE AUTO 1.54 K/mm3 (0.84-5.20); LYMPHOCYTES PERCENT AUTO 10 % (21-46); MONOCYTES ABSOLUTE AUTO 1.31 K/mm3 (0.16-1.47); MONOCYTES PERCENT AUTO 9 % (4-13); Mean Corpuscular HGB 30.3 pg (26.0-34.0); Mean Corpuscular HGB Conc 34.4 g/dL (31.5-36.5); Mean Corpuscular Volume 88 fL (80-100); Mean Platelet Volume 10.3 fL (9.1-12.4); NEUTROPHILS ABSOLUTE AUTO 12.32 K/mm3 (1.96-9.15); NEUTROPHILS PERCENT AUTO 80 % (41-73); Platelet Count 548 K/mm3 (150-400); RDW Coefficient Variation 13.2 % (11.7-14.2); Red Blood Cell Count 4.75 M/mm3 (3.80-5.20); White Blood Cell Count 15.49 K/mm3 (4.00-11.30)
[2023-08-12 05:19] LABS: Bun/Creatinine Ratio 33.8 (12.0-20.0); Calcium, Blood 10.1 mg/dL (8.5-10.1); Creatinine, Blood 0.83 mg/dL (0.40-1.00); Magnesium, Blood 2.3 mg/dL (1.6-2.4); Potassium, Blood 3.7 mmol/L (3.5-5.5)
--- NOTE | 2023-08-12 07:49 | NUR ---
POD 6 S/P COLOSTOMY REVERSAL. PT VSS T/O NIGHT. DRESSINGS CDI. PT HAD SEVERAL SMALL LIQ BM THIS SHIFT. PT CONT TO REP DEC APPETITE, DENIED N/V. PT REP INC PAIN THIS AM AFTER INC ACTIVITY DURING NIGHT. PT C/O VAGINAL PAIN THIS AM. MEDICATE PER EMAR, DAY SHIFT RN UPDATED.
[2023-08-12] MEDS ORDERED: Lactated Ringer's 1,000 ML IV ONE ×2 (10:15→15:10)
--- NOTE | 2023-08-12 12:21 | NUR ---
ABD DRESSING CHANGED AFTER SHOWER, CLEANSED WITH WOUND CLEANSER, COVERED WITH MEPILEX DRESSING.
[2023-08-12] MEDS ORDERED: Lactated Ringer's 1,000 ML IV SCH ×2 (15:15→19:25)
[2023-08-12] MEDS ORDERED: Rocuronium Bromide 10 MG/ML 5ML Injection IV ONE ×4 (15:16→17:19)
[2023-08-12] MEDS ORDERED: propofoL 20 ML IV ONE (15:16)
[2023-08-12] MEDS ORDERED: Ondansetron HCl 2 MG / ML 2ML Vial ONE (15:17)
[2023-08-12] MEDS ORDERED: FentaNYL Citrate 50 MCG/ML 5 ML Injection ONE (15:17)
[2023-08-12] MEDS ORDERED: ePHEDrine Sulfate 50 MG/ML 1ML Injection ONE (15:17)
[2023-08-12] MEDS ORDERED: Dexamethasone Sod Phos 10 MG/ML 1ML VIAL ONE (15:17)
[2023-08-12] MEDS ORDERED: Bupivacaine 0.5% HCl 5 MG/ML 30MLVIAL ONE (15:21)
[2023-08-12] MEDS ORDERED: CefOXitin Sodium 2,000 MG in NS 100 ML IV SCH (15:25)
--- NOTE | 2023-08-12 15:26 | NUR ---
PT TAKEN TO DAY SURGERY FOR EMERGENT SURGERY BY DR. GALEANA PER DAY SURGERY RN VICTOR M. PT'S S.O. HERE AT BEDSIDE.
--- NOTE | 2023-08-12 15:28 | NUR ---
History, Chart, Medications and Allergies reviewed before start of procedure.Pre-Op teaching done. Pt verbalizes understanding.
[2023-08-12] MEDS ORDERED: Indocyanine Green 25 MG Vial IV ONE (15:50)
[2023-08-12] MEDS ORDERED: Labetalol HCL 5 MG/ML 4ML Injection (Single Dose) ONE (16:33)
[2023-08-12] MEDS ORDERED: Piperacillin/Tazobactam Sod 3.375 GM in NS 50 ML IV ONE (16:50)
[2023-08-12] MEDS ORDERED: Phenylephrine HCl 100 MCG/ML-NS 10MLSYR (1MG/10ML) ONE (17:04)
[2023-08-12] MEDS ORDERED: CefOXitin Sodium 2,000 MG in NS 100 ML IV ONE (17:15)
[2023-08-12] MEDS ORDERED: Metoclopramide HCl 5MG / ML 2ML Vial IV PRN (17:55)
[2023-08-12] MEDS ORDERED: HYDROmorphone HCl/Pf 1MG SYR IV PRN (17:55)
[2023-08-12] MEDS ORDERED: Ondansetron HCl 2 MG / ML 2ML Vial IV PRN (17:55)
[2023-08-12] MEDS ORDERED: FentaNYL Citrate 50 MCG/ML 2 ML Injection IV PRN ×3 (17:55)
--- NOTE | 2023-08-12 18:23 | NUR ---
SUMMARY PT DENIED ANY NAUSEA TODAY BUT C/O OF INCREASED LOWER ABD PAIN THIS AM, REPORTS HAVING BM'S LAST NIGHT, AMBULATED DOWN THE YI, TOOK A SHOWER, ABD DSG CHANGED, CT ABD ORDERED THIS AFTERNOON, THEN PT TAKEN TO THE OR BY DR. GALEANA, PT STILL CURRENTLY IN OR.
[2023-08-12] MEDS ORDERED: Sugammadex Sodium 200 MG/2ML SDV (100 MG/ML) ONE (18:54)
[2023-08-12] MEDS ORDERED: HYDROmorphone 1 MG/ML 30 ML Bag IV PRN (19:30)
[2023-08-12] MEDS ORDERED: Ipratropium/Albuterol SulF 2.5-0.5MG/3 ML Amp INH ONE (20:30)
[2023-08-12] MEDS ORDERED: Ipratropium/Albuterol SulF 2.5-0.5MG/3 ML Amp INH PRN (20:35)
[2023-08-12 20:43] LABS: Source, Urine Foley catheter
[2023-08-12 20:49] LABS: Appearance, Urine Clear (Clear); Blood, Urine 1+ (Neg); Color, Urine Amber (P-Yellow); Glucose Qualitative, Urine Neg (Neg); Ketones, Urine Neg (Neg); Leukocyte Esterase, Urine 1+ (Neg); Nitrite, Urine Pos (Neg); Protein, Urine 2+ (Neg); Urobilinogen, Urine 1+ (Normal)
[2023-08-12 20:59] LABS: Bilirubin, Urine 2+ (Neg)
[2023-08-12 21:00] LABS: Squamous Epithelial Cells Few /hpf (Few)
[2023-08-12 21:01] LABS: Amorphous Light (0-Heavy); Bacteria Many /hpf
[2023-08-13] VITALS (24 sets, daily range): BP systolic 90–131; BP diastolic 47–83
[2023-08-13] MEDS ORDERED: Piperacillin/Tazobactam Sod 3.375 GM in NS 50 ML IV SCH
[2023-08-13 04:00] LABS: Hemoglobin 15.4 g/dL (11.5-16.0); Mean Corpuscular HGB 29.3 pg (26.0-34.0); Mean Corpuscular HGB Conc 33.5 g/dL (31.5-36.5); Mean Corpuscular Volume 88 fL (80-100); Platelet Count 651 K/mm3 (150-400); RDW Coefficient Variation 13.7 % (11.7-14.2); Red Blood Cell Count 5.25 M/mm3 (3.80-5.20); White Blood Cell Count 16.52 K/mm3 (4.00-11.30)
[2023-08-13 04:19] LABS: Alanine Aminotransfer (ALT/SGP 145 U/L (12-78); Albumin, Blood 1.6 g/dL (3.4-5.0); Albumin/Globulin Ratio 0.5 (0.8-1.8); Alk Phos 149 U/L (50-136); Anion Gap 5 mmol/L (6-16); Aspartate Aminotrans (AST/SGOT 76 U/L (12-37); Blood Urea Nitrogen 31 mg/dL (8-24); CO2, Blood 25 mmol/L (21-32); Calcium, Blood 8.5 mg/dL (8.5-10.1); Chloride, Blood 104 mmol/L (98-108); Creatinine, Blood 0.86 mg/dL (0.40-1.00); Globulin, Blood 3.3 g/dL (2.2-4.0); Glomerular Filtration Rate 74 (60-); Glucose, Blood 149 mg/dL (70-99); Magnesium, Blood 2.1 mg/dL (1.6-2.4); Potassium, Blood 4.7 mmol/L (3.5-5.5); Sodium, Blood 134 mmol/L (136-145); Total Protein, Blood 4.9 g/dL (6.4-8.2); Triglycerides 87 mg/dL (30-160)
[2023-08-13 05:10] LABS: BASOPHILS PERCENT MAN 0 % (0-2); EOSINOPHILS PERCENT MAN 0 % (0-6); LYMPHOCYTES ABSOLUTE MAN 1.48 K/mm3 (0.84-5.20); LYMPHOCYTES PERCENT MAN 9 % (21-46); MYELOCYTE ABSOLUTE MAN 0.16 K/mm3 (0.00-0.00); MYELOCYTE PERCENT MAN 1 % (0-0); TOTAL CELLS COUNTED 100
[2023-08-13 05:17] LABS: BAND PERCENT MAN 38 % (0-8); METAMYELOCYTE ABSOLUTE MAN 0.49 K/mm3 (0.00-0.00); METAMYELOCYTE PERCENT MAN 3 % (0-0); MONOCYTES ABSOLUTE MAN 0.82 K/mm3 (0.16-1.47); MONOCYTES PERCENT MAN 5 % (4-13); NEUTROPHILS ABSOLUTE MAN 13.54 K/mm3 (1.96-9.15); SEG NEUTROPHILS PERCENT MAN 44 % (41-73)
--- NOTE | 2023-08-13 07:27 | NUR ---
SHIFT SUMMERY PT IS ALERT AND ORIENTED X4. PAIN HAS BEEN CONTROLLED W/LEGAL SERVICES MANAGER OVERNIGHT. NG TUBE TO ILWS HAS PUT OUT A SMALL AMOUNT OF BILE. PT WAS MEDICATED FOR NAUSEA ONCE. HE RADHA DRESSING IS C/D/I. GARCES CATH IS INTACT PATENT AND DRAINING TO GRAVITY. PT HAS BEEN AFEBRILE. ZAINAB DRAIN W/SMALL AMOUNT OF SEROSANGUINOUS OUTPUT. OSTOMY STOMA BEEFY RED W/SOME SEROSANGUINOUS DRAININGE. PT HAS BEEN SR ON THE MACHINE REPAIRMAN OVERNIGHT W/BP WNL. PT OS ON HFNC W/OXYGEN SAT >90%. PT HAS HAD NO EPISODES OF ACUTE DISTRESS OVERNIGHT AND TOLERATED TREATMENT WELL. .
[2023-08-13] MEDS ORDERED: NS 250 ML IV PRN (08:40)
--- NOTE | 2023-08-13 11:05 | NUR ---
Visited Pt. after ICU rounds. Pt. is in bed when she welcomes my visit. Spouse is at bedside. Pt. is unsettled about the failed attempt to reverse her colostomy. Facilitated a life review and listened with a calming presence and empathy. Pt. displays evidence of coming to terms with needing to use the colostomy from now on. Pastoral care and encouragement is given. Pt. verbalized gratitude for the spiritual care visit and welcomed this analyzer sales to return.
[2023-08-13] MEDS ORDERED: TPN Consult Notification XX ONE (13:20)
--- NOTE | 2023-08-13 16:55 | NUR ---
SHIFT SUMMARY NO ACUTE CHANGES THIS SHIFT. PT HAS REMAINED ALERT AND ORIENTED WHEN AWAKE. PT AWAKENS EASILY TO VOICE WHEN SLEEPING. PT HAS USED DILAUDID MANAGER PRACTICE THROUGHOUT THE SHIFT FOR ABD PAIN. PICC PLACED TO DAVID THIS MORNING. LR INFUSING AT 100 ML/HR, NS TKO, AND CPN STARTED THIS EVENING AT 75 ML/HR. PT WITH NGT IN PLACE TO LIS. PT TAKING IN SIPS OF WATER AND PEDIALYTE WELL. DR GALEANA ENCOURAGED PO INTAKE FOR PT COMFORT WITH NGT TO SUCTION. MIDLINE ABD INCISION WITH RADHA C/D/I. COLOSTOMY REMAINS BEEFY RED WITH SCANT OUTPUT NOTED. ZAINAB DRAIN REMAINS IN PLACE WITH 40 ML LIGHT RED OUTPUT NOTED. GARCES REMAINS IN PLACE WITH SMALL AMOUNT OF DARK PAM OUTPUT NOTED. PT SPOUSE AT BEDSIDE MOST OF THIS SHIFT. VITAL SIGNS HAVE REMAINED STABLE. WILL CONTINUE TO MONITOR AND REPORT OFF TO ONCOMING RN.
--- NOTE | 2023-08-13 21:08 | NUR ---
REPORT GIVEN TO ANKITA ALMENDAREZ. PT TRANSFERRED TO ROOM 224 VIA BED ON CAFE SERVER AND WITH OXYGEN IN PLACE. PT WAS IN NO ACUTE DISTRESS AND VOICED NO COMPLAINTS AT TIME OF TRANSFER. BELONGINGS WERE TAKEN WITH PT WELL CHART AND MEDICATIONS.
--- NOTE | 2023-08-13 21:21 | NUR ---
PT ARRIVED TO ROOM 224 FROM PACU. PT A/O X4, VSS. 5LHF NC IN PLACE. LUNGS CLEAR/DIM, PT DENIES SOB. PT RADHA DRESSING W/SMAMT SS DRNG, SEAL AND SX INTACT. RONA W/LIGHT SS DRNG, BULB COMPRESSED. NGT TO LIS W/GREEN DRNG, PT DENIES N/V. BT HYPO, SCANT LIGHT SS DRNG FROM OSTOMY, STOMA BEEFY RED. GARCES PATANT DRNG PAM URINE W/SLIGHT PINK TINT. TPN AND LR CONT PER ORDERS, PT USING THREE KNIFE TRIMMER PRN, REP PAIN MEGAN. PT ORIENTED TO ROOM/CALL LIGHT. AWAITING TELE BOX.
[2023-08-14 03:52] VITALS: BP 118/74
[2023-08-14 06:30] LABS: Alanine Aminotransfer (ALT/SGP 69 U/L (12-78); Albumin, Blood 1.4 g/dL (3.4-5.0); Albumin/Globulin Ratio 0.4 (0.8-1.8); Alk Phos 99 U/L (50-136); Anion Gap 2 mmol/L (6-16); Aspartate Aminotrans (AST/SGOT 27 U/L (12-37); Bilirubin, Direct 0.4 mg/dL (0.0-0.3); Bilirubin, Indirect 0.3 mg/dL (0.1-0.7); Bilirubin, Total 0.7 mg/dL (0.1-1.0); Blood Urea Nitrogen 34 mg/dL (8-24); Bun/Creatinine Ratio 55.2 (12.0-20.0); CO2, Blood 32 mmol/L (21-32); Calcium, Blood 8.1 mg/dL (8.5-10.1); Chloride, Blood 100 mmol/L (98-108); Creatinine, Blood 0.62 mg/dL (0.40-1.00); Globulin, Blood 3.3 g/dL (2.2-4.0); Glomerular Filtration Rate 98 (60-); Glucose, Blood 126 mg/dL (70-99); Magnesium, Blood 2.4 mg/dL (1.6-2.4); Potassium, Blood 3.8 mmol/L (3.5-5.5); Sodium, Blood 134 mmol/L (136-145); Total Protein, Blood 4.7 g/dL (6.4-8.2); Triglycerides 198 mg/dL (30-160)
[2023-08-14 06:32] LABS: Phosphorus, Blood 1.6 mg/dL (2.5-4.9)
--- NOTE | 2023-08-14 07:16 | NUR ---
POD 2 S/P EX LAP + COLOSTOMY. PT VSS SINCE ARRIVAL TO FLOOR, SATS >90% ON 5L HFNC. RADHA DRESSING W/SEAL AND SX INTACT. NGT W/GREEN DRNG, NO OUTPUT FROM OSTOMY. ABD SOFT TO PALP. RONA W/SMALL AMT LIGHT SS DRNG. PAIN MGD W/VEGETABLE II FARMWORKER W/REP RELIEF, PT DENIED N/V, GARCES DRNG PAM URINE. LR COMPLETED, CPN AND ABX CONT PER ORDERS.
[2023-08-14 07:46] VITALS: BP 117/65
[2023-08-14] MEDS ORDERED: Sodium Phosphate 30 MM in Dextrose 5% 500 ML IV STA (08:20)
[2023-08-14 15:27] VITALS: BP 130/69
--- NOTE | 2023-08-14 16:42 | NUR ---
[facility] OVERSEW OF RECTAL POUCH WITH END COLOSTOMY PT PAIN CONTROLLED WITH BUSINESS ANALYTICS SPECIALIST. NGT REMAINS PATENT AND DRAINING. TOLERATING CLEAR WATER AND ICE CHIPS WELL, NO NAUSEA. MIDLINE DRESSING REMAINS CDI. GARCES PATENT AND DRAINING. RONA DRAIN WITH MINIMAL DRAINAGE. TPN INFUSING PER EMAR. PT HAS BEEN EMOTIONAL DURING SHIFT, STRUGGLING WITH FUTURE PLANS AND EXPRESSING DIFFICULTY ACCEPTING THAT SHE HAS HER STOMA BACK. SPOUSE AT BEDSIDE FOR SUPPORT. PT ABLE TO STAND AND TRANSFER WELL TO CHAIR.
[2023-08-14 19:48] VITALS: BP 127/69
[2023-08-15 04:28] VITALS: BP 121/67
--- NOTE | 2023-08-15 04:52 | NUR ---
SHIFT SUMMARY POD 3 OVERSEW W/ COLOSTOMY. PT RESTED DURING THE NIGHT PAIN MANAGED WITH NUT SIFTER. TPN RUNNING ALL NIGHT. GARCES DRAINING TO GRAVITY. NG TUBE OUTPUT MINIMAL, BILE. RONA DRAINING SEROUS FLUID, BULB COMPRESSED. DENIES N/V. STOMA IS RED AND SEROUS FLUID OUTPUT, NO FLATUS. NO OTHER CONCERNS AT THIS TIME. CALL LIGHT WITHIN REACH
[2023-08-15 06:35] LABS: Magnesium, Blood 2.1 mg/dL (1.6-2.4)
[2023-08-15 06:36] LABS: Calcium, Blood 8.2 mg/dL (8.5-10.1); Creatinine, Blood 0.5 mg/dL (0.40-1.00); Phosphorus, Blood 1.8 mg/dL (2.5-4.9)
[2023-08-15 07:46] VITALS: BP 126/68
[2023-08-15] MEDS ORDERED: Sodium Phosphate 30 MM in Dextrose 5% 500 ML IV SCH (09:10)
[2023-08-15] MEDS ORDERED: Furosemide 10 MG / ML 2ML Vial IV SCH (10:00)
[2023-08-15 15:09] VITALS: BP 134/67
[2023-08-15 15:53] LABS: Bun/Creatinine Ratio 34.2 (12.0-20.0); Calcium, Blood 8.6 mg/dL (8.5-10.1); Creatinine, Blood 0.5 mg/dL (0.40-1.00); Potassium, Blood 3.9 mmol/L (3.5-5.5)
[2023-08-15] MEDS ORDERED: DiphenhydrAMINE HCl 50 MG/ML 1ML Vial IV PRN (16:55)
--- NOTE | 2023-08-15 18:32 | NUR ---
SHIFT SUMMARY POD 3 OVERSEW RECTAL POUCH WITH END COLOSTOMY PT UP TO CHAIR TWICE TODAY. OXYGEN TITRATED DOWN TO 3L, SATS 92% OR HIGHER. PT REPORTS BREATHING IMPROVED AFTER LASIX AND GETTING UP. PAIN CONTROLLED WITH EDGE ROLLER. NGT REMAINS TO LIS, DARK GREEN OUTPUT. MIDLINE RADHA REMAINS CDI. OSTOMY NO OUTPUT OR FLATUS IN BAG.
[2023-08-15 20:05] VITALS: BP 125/65
[2023-08-16 02:11] VITALS: BP 120/67
[2023-08-16 07:19] VITALS: BP 120/71
--- NOTE | 2023-08-16 08:47 | NUR ---
SHIFT SUMMARY NOC. PT A/O X4 THIS SHIFT. MIDLINE RADHA IS NOT COMPRESSED BUT IS C/D/I WITH SCANT SEROSANG DRIED DRAINAGE. RONA TUBE, GARCES, AND NG TUBES PRODUCING OUTPUT. PT MEDICATED FOR NAUSEA X1. PT HAS A WEAVING PROFESSOR PUMP WHICH IS MANAGING HER PAIN. PT ON TELE AND NSR. STOMA PRODUCING SEROUS OUTPUT, BEEFY RED IN COLOR. PT RESTED WITH EYES CLOSED AND CALL LIGHT IN REACH.
--- NOTE | 2023-08-16 10:00 | NUR ---
PT HAS A RASH ON HER ABD AROUND TO HER BACK. PT REPORTS ITCHING AND REQUESTED BENADRYL. PT ALSO STATES SHE IS ALLERGIC TO PENICILLIN AND ZOSYN IS ORDERED FOR PT. PT HAS BEEN GIVEN ZOSYN DURING THIS ADMIT AND HAS TOLERATED WELL. PT REPORTS SHE HAS HAD A RASH FOR SEVERAL DAY. DR. GALEANA'S NOTES REVIEWED, IT IS UNCLEAR IF SHE WAS AWARE THAT PT HAS A RASH. SPOKE WITH PING IN PHARMACY REGARDING ALLERGY, PING RECOMMENDED NOTIFYING DR. SMITH. DR. SMITH WAS NOTIFIED, CONTINUE WITH ZOSYN PER DR. SMITH. BENADRYL GIVEN BEFORE ZOSYN WAS ADMINISTERED.
[2023-08-16 12:50] LABS: Hematocrit 35.4 % (33.0-51.0); Mean Corpuscular HGB 30.1 pg (26.0-34.0); Mean Corpuscular HGB Conc 33.9 g/dL (31.5-36.5); Mean Corpuscular Volume 89 fL (80-100); Mean Platelet Volume 9.5 fL (9.1-12.4); Platelet Count 513 K/mm3 (150-400); RDW Coefficient Variation 13.9 % (11.7-14.2); RDW Standard Deviation 45.1 fL (35.1-46.3); Red Blood Cell Count 3.99 M/mm3 (3.80-5.20); White Blood Cell Count 31.32 K/mm3 (4.00-11.30)
--- NOTE | 2023-08-16 13:00 | NUR ---
ELEVATED WBC COUNT DR. SMITH NOTIFIED OF ELEVATED WHITE COUNT WITH LABS. PT IS NOT HAVING FEVERS, VSS WNL, PT CONDITION UNCHANGED. ABD REMAINS MILDLY DISTENDED AND PT'S PAIN CONTINUES TO BE MANAGED WITH DELI DEPARTMENT MANAGER. PER DR. SMITH NO INTERVENTION AT THIS TIME.
[2023-08-16 13:04] LABS: BAND PERCENT MAN 1 % (0-8); BASOPHILS PERCENT MAN 0 % (0-2); EOSINOPHILS ABSOLUTE MAN 0.31 K/mm3 (0.00-0.68); EOSINOPHILS PERCENT MAN 1 % (0-6); LYMPHOCYTES ABSOLUTE MAN 3.13 K/mm3 (0.84-5.20); LYMPHOCYTES PERCENT MAN 10 % (21-46); METAMYELOCYTE ABSOLUTE MAN 0.62 K/mm3 (0.00-0.00); METAMYELOCYTE PERCENT MAN 2 % (0-0); MONOCYTES ABSOLUTE MAN 1.25 K/mm3 (0.16-1.47); MONOCYTES PERCENT MAN 4 % (4-13); MYELOCYTE ABSOLUTE MAN 0.31 K/mm3 (0.00-0.00); MYELOCYTE PERCENT MAN 1 % (0-0); NEUTROPHILS ABSOLUTE MAN 25.68 K/mm3 (1.96-9.15); SEG NEUTROPHILS PERCENT MAN 81 % (41-73); TOTAL CELLS COUNTED 100
[2023-08-16 13:07] VITALS: BP 126/66
[2023-08-16 13:28] LABS: Bun/Creatinine Ratio 28.2 (12.0-20.0); Calcium, Blood 8.6 mg/dL (8.5-10.1); Creatinine, Blood 0.57 mg/dL (0.40-1.00); Magnesium, Blood 2.1 mg/dL (1.6-2.4); Phosphorus, Blood 2.6 mg/dL (2.5-4.9); Potassium, Blood 4.1 mmol/L (3.5-5.5)
[2023-08-16 15:34] VITALS: BP 112/78
--- NOTE | 2023-08-16 18:20 | NUR ---
OSTOMY APPLIANCE AND ABD DRESSING CHANGED RADHA DRESSING DID NOT APPEAR TO BE HOLDING SUCTION SO DRESSING WAS CHANGED TO MEDIPORE PER DR. SMITH. IN ORDER TO REMOVE RADHA DRESSING, DRESSING HAD TO BE REMOVED FROM RONA DRAIN AND OSTOMY APPLIANCE HAD TO BE REMOVED. STING FREE ADHESIVE REMOVER USED TO REMOVE DRESSINGS. PT'S SKIN APPEARED SOMEWHAT RED/IRRITATED UNDER OSTOMY APPLIANCE. SKIN AND INCISION CLEANSED WITH SALINE. SKIN PREP USED BEFORE DRESSINGS OR NEW APPLIANCE PLACED. CHG DRESSING PLACED OVER RONA SITE. MEDIPORE DRESSING PLACED OVER MIDLINE INCISION. 2 3/4 OVAL OSTOMY APPLIANCE WITH MOOSE WAFER PLACED.
[2023-08-16 19:04] VITALS: BP 126/68
--- NOTE | 2023-08-16 19:42 | NUR ---
SHIFT SUMMARY PT IS POD#[address] GALEANA. PAIN MANAGED WITH DILAUDID LOGISTICS CENTER MANAGER. PT HAS BEEN ALERT AND ORIENTED THIS SHIFT. ABD DRESSING, RONA DRESSING AND OSTOMY APPLIANCE CHANGED. PT HAS BEEN A 1 PERSON ASSIST WHEN OOB FOR HELP WITH LINES AND TUBES. NG TUBE REMAINS IN PLACE. BEDSIDE REPORT GIVEN TO LYNETTE ALMENDAREZ.
[2023-08-16 23:55] VITALS: BP 120/67
[2023-08-17 04:39] VITALS: BP 119/68
[2023-08-17 07:20] VITALS: BP 126/66
[2023-08-17 08:06] LABS: Hematocrit 36.3 % (33.0-51.0); Hemoglobin 12.1 g/dL (11.5-16.0); Mean Corpuscular HGB 29.4 pg (26.0-34.0); Mean Corpuscular HGB Conc 33.3 g/dL (31.5-36.5); Mean Corpuscular Volume 88 fL (80-100); Mean Platelet Volume 9.5 fL (9.1-12.4); Platelet Count 515 K/mm3 (150-400); RDW Coefficient Variation 13.9 % (11.7-14.2); RDW Standard Deviation 45.1 fL (35.1-46.3); Red Blood Cell Count 4.11 M/mm3 (3.80-5.20); White Blood Cell Count 29.09 K/mm3 (4.00-11.30)
[2023-08-17 08:17] LABS: Bun/Creatinine Ratio 39.3 (12.0-20.0); Creatinine, Blood 0.56 mg/dL (0.40-1.00); Potassium, Blood 4.2 mmol/L (3.5-5.5)
--- NOTE | 2023-08-17 08:17 | NUR ---
SHIFT SUMMARY NOC. PT A/O X4. PT NG TUBE CONNECTED TO LIS AND PRODUCING OUTPUT, RONA DRAIN PRODUCING OUTPUT. PT MEDIPORE ON THE ABDOMEN IS C/D/I. OSTOMY IS RED AND PRODUCING GAS. PT AMBULATED TO THE BEDSIDE COMMODE WELL. PT'S PAIN CONTROLLED WITH THREAD DRAWER PUMP. PT RESTED WITH EYES CLOSED AND CALL LIGHT IN REACH.
--- NOTE | 2023-08-17 08:20 | NUR ---
SHIFT SUMMARY NOC. PT A/O X4. WET TO DRY DRESSING ON ABDOMEN CHANGED X2 THIS SHIFT. PT'S PAIN CONTROLLED WITH SCHEDULED MEDICATION. PT AMBULATED TO THE BR WITH SBA. PT VOIDING AND TOLERATING PO. PT REPORTS PASSING GAS. PT REPORTED A SLIGHT TUG ON HER PICC LINE WHEN GETTING UP TO BEDSIDE COMMODE (SEE PICC MANAGEMENT FOR DETAILS), DISCUSSED WITH CROZE MACHINE OPERATOR SUGEY GOMEZ. ASSESSED LINE WITH CHARGE AND LINE DRAWS. PT DENIES PAIN AT SITE, DENIES SOB OR CP. PT RESTED WITH EYES CLOSED AND CALL LIGHT IN REACH.
[2023-08-17 08:29] LABS: BAND PERCENT MAN 6 % (0-8); BASOPHILS PERCENT MAN 0 % (0-2); EOSINOPHILS ABSOLUTE MAN 0.29 K/mm3 (0.00-0.68); EOSINOPHILS PERCENT MAN 1 % (0-6); LYMPHOCYTES % ATYPICAL MANUAL 1 % (0-0); LYMPHOCYTES ABSOLUTE MAN 2.32 K/mm3 (0.84-5.20); LYMPHOCYTES PERCENT MAN 7 % (21-46); METAMYELOCYTE ABSOLUTE MAN 0.58 K/mm3 (0.00-0.00); METAMYELOCYTE PERCENT MAN 2 % (0-0); MONOCYTES ABSOLUTE MAN 3.49 K/mm3 (0.16-1.47); MONOCYTES PERCENT MAN 12 % (4-13); NEUTROPHILS ABSOLUTE MAN 22.39 K/mm3 (1.96-9.15); SEG NEUTROPHILS PERCENT MAN 71 % (41-73); TOTAL CELLS COUNTED 100
[2023-08-17] MEDS ORDERED: Lactated Ringer's 500 ML IV ONE (11:00)
--- NOTE | 2023-08-17 11:01 | NUR ---
DR. SMITH ROUNDED AT APPROXIMATELY 1020. DISCUSSED CLAMPING NG TUBE AND ALLOWING PT TO HAVE SOME CLEAR LIQUIDS SINCE PT IS PASSING FLATUS FROM OSTOMY. PER DR. SMITH OK TO TRIAL CLAMP NG TUBE TODAY. PT HAS A MILD RASH ON HER ABD AND BACK, SHE ALSO HAS REPORTED ALLERGY TO [facility] AND IS GETTING ZOSYN. PT IS TOLERATING ZOSYN WELL AND HAS BEEN PRE TREATED WITH BENADRYL. DISCUSSED ABX RECOMMENDATIONS WITH DR. SMITH IF HE CHOOSES TO CHANGE ABX. PER DR. SMITH PLAN IS TO CONTINUE WITH ZOSYN AT THIS TIME.
--- NOTE | 2023-08-17 11:06 | NUR ---
ABD MIDLINE DRESSING CHANGED, CLEAN MEDIPORE PLACED. CHG TEGADERM PLACED OVER RONA DRAIN.
[2023-08-17 16:05] VITALS: BP 135/93
[2023-08-17 19:23] VITALS: BP 136/72
--- NOTE | 2023-08-17 19:58 | NUR ---
PT REPORTED NAUSEA AND HEARTBURN AT 1706. NG TUBE RECONNECTED TO LOW INTERMITTENT SUCTION. PT'S SYMPTOMS RESOLVED WITHOUT FURTHER INTERVENTION.
--- NOTE | 2023-08-17 20:08 | NUR ---
SHIFT SUMMARY PT IS POD# 5. PT IS HAVING A SMALL AMOUNT FLATUS FROM HER OSTOMY. NG TUBE WAS CLAMPED FOR SEVERAL HOURS TODAY BUT WAS UNABLE TO TOLERATE, NG IS NOW RE-CONNECTED TO TO LOW INTERMITTENT SUCTION. PAIN MANAGED WITH WORK CHECKER. PT IS A 1 ASSIST WITH TRANSFERS, SHE REQUIRES ASSISTANCE WITH LINES AND TUBES. BEDSIDE REPORT GIVEN TO BELEN ALMENDAREZ.
[2023-08-18 02:12] VITALS: BP 121/67
[2023-08-18 07:15] VITALS: BP 137/71
--- NOTE | 2023-08-18 08:00 | NUR ---
SHIFT SUMMARY NOC. PT A/O X4. PT MIDLINE MEDIPORE C/D/I. STOMA PRODUCING GAS THIS SHIFT BUT NO OUTPUT. CPN RUNNING. PT AMBULATED IN YI X2 THIS SHIFT AND TOLERATED WELL. PT MEDICATED FOR NAUSEA X1 WITH RELIEF. PAIN CONTROLLED WITH SECURITY INSTALLATION TECHNICIAN. PT NG TUBE CONNECTED TO LIS AND PRODUCING GREEN OUTPUT. PT ROAN DRAIN HAD MINIMAL SEROUS OUTPUT. PT AFEBRILE AND RESTED WITH EYES CLOSED AND CALL LIGHT IN REACH.
[2023-08-18 08:38] LABS: Hematocrit 36.2 % (33.0-51.0); Hemoglobin 12.2 g/dL (11.5-16.0); Mean Corpuscular HGB 29.3 pg (26.0-34.0); Mean Corpuscular HGB Conc 33.7 g/dL (31.5-36.5); Mean Corpuscular Volume 87 fL (80-100); Mean Platelet Volume 9.3 fL (9.1-12.4); Platelet Count 560 K/mm3 (150-400); RDW Coefficient Variation 14.1 % (11.7-14.2); RDW Standard Deviation 45.3 fL (35.1-46.3); Red Blood Cell Count 4.16 M/mm3 (3.80-5.20); White Blood Cell Count 27.19 K/mm3 (4.00-11.30)
[2023-08-18 09:06] LABS: Albumin, Blood 1.7 g/dL (3.4-5.0); Anion Gap 2 mmol/L (6-16); Blood Urea Nitrogen 23 mg/dL (8-24); Bun/Creatinine Ratio 38.1 (12.0-20.0); CO2, Blood 31 mmol/L (21-32); Calcium, Blood 9.1 mg/dL (8.5-10.1); Chloride, Blood 98 mmol/L (98-108); Glomerular Filtration Rate 99 (60-); Glucose, Blood 112 mg/dL (70-99); Magnesium, Blood 2.5 mg/dL (1.6-2.4); Phosphorus, Blood 3.5 mg/dL (2.5-4.9); Potassium, Blood 4.4 mmol/L (3.5-5.5); Sodium, Blood 131 mmol/L (136-145)
[2023-08-18 09:14] LABS: BAND PERCENT MAN 4 % (0-8); BASOPHILS ABSOLUTE MAN 0.27 K/mm3 (0.00-0.23); BASOPHILS PERCENT MAN 1 % (0-2); EOSINOPHILS ABSOLUTE MAN 0.27 K/mm3 (0.00-0.68); EOSINOPHILS PERCENT MAN 1 % (0-6); LYMPHOCYTES ABSOLUTE MAN 1.63 K/mm3 (0.84-5.20); LYMPHOCYTES PERCENT MAN 6 % (21-46); METAMYELOCYTE ABSOLUTE MAN 0.54 K/mm3 (0.00-0.00); METAMYELOCYTE PERCENT MAN 2 % (0-0); MONOCYTES ABSOLUTE MAN 3.53 K/mm3 (0.16-1.47); MONOCYTES PERCENT MAN 13 % (4-13); MYELOCYTE ABSOLUTE MAN 1.35 K/mm3 (0.00-0.00); MYELOCYTE PERCENT MAN 5 % (0-0); NEUTROPHILS ABSOLUTE MAN 18.76 K/mm3 (1.96-9.15); OTHER CELL PERCENT MAN 1 % (0-0); PLASMA CELL ABSOLUTE MAN 0.27 K/mm3 (0.00-0.00); PLASMA CELLS PERCENT MAN 1 % (0-0); PROMYELOCYTE ABSOLUTE MAN 0.27 K/mm3 (0.00-0.00); PROMYELOCYTE PERCENT MAN 1 % (0-0); SEG NEUTROPHILS PERCENT MAN 65 % (41-73); TOTAL CELLS COUNTED 100
[2023-08-18] MEDS ORDERED: Magnesium Hydroxide Conc 10 ML UDC PT SCH (13:30)
[2023-08-18 14:39] VITALS: BP 131/75
--- NOTE | 2023-08-18 18:09 | NUR ---
SHIFT SUMMARY POD 6 PT HAS VERY SMALL AMOUNT OF MUCOUSY BROWN STOOL IN BAG. AFTER ADMINISTRATION OF M.O.M. CONTINUES TO HAVE GAS IN BAG. PT WORKED WELL WITH THERAPY TODAY. STRENGTH IMPROVING. VOIDING WELL. PAIN CONTROLLED WITH SKIP PIT WORKER. NGT REMAINS TO LIS. PULLED BACK APPROX 5CM PER SURGEON RECCOMENDATION AFTER CT SCAN. PT TOLERATED WELL, NEW DRESSING TO NOSE. RONA DRAIN BULB REMAINS COMPRESSED. PT USING INCENTIVE SPIROMETER.
[2023-08-18 19:37] VITALS: BP 128/71
[2023-08-19 04:07] VITALS: BP 127/69
[2023-08-19 04:37] LABS: Hematocrit 35.3 % (33.0-51.0); Hemoglobin 11.8 g/dL (11.5-16.0); Mean Corpuscular HGB 29.6 pg (26.0-34.0); Mean Corpuscular HGB Conc 33.4 g/dL (31.5-36.5); Mean Corpuscular Volume 89 fL (80-100); Mean Platelet Volume 9.4 fL (9.1-12.4); Platelet Count 569 K/mm3 (150-400); RDW Coefficient Variation 14.2 % (11.7-14.2); RDW Standard Deviation 45.7 fL (35.1-46.3); Red Blood Cell Count 3.98 M/mm3 (3.80-5.20); White Blood Cell Count 24.53 K/mm3 (4.00-11.30)
[2023-08-19 05:51] LABS: BAND PERCENT MAN 7 % (0-8); BASOPHILS PERCENT MAN 0 % (0-2); EOSINOPHILS ABSOLUTE MAN 0.24 K/mm3 (0.00-0.68); EOSINOPHILS PERCENT MAN 1 % (0-6); LYMPHOCYTES ABSOLUTE MAN 1.22 K/mm3 (0.84-5.20); LYMPHOCYTES PERCENT MAN 5 % (21-46); METAMYELOCYTE ABSOLUTE MAN 0.49 K/mm3 (0.00-0.00); METAMYELOCYTE PERCENT MAN 2 % (0-0); MONOCYTES ABSOLUTE MAN 1.22 K/mm3 (0.16-1.47); MONOCYTES PERCENT MAN 5 % (4-13); MYELOCYTE ABSOLUTE MAN 1.71 K/mm3 (0.00-0.00); MYELOCYTE PERCENT MAN 7 % (0-0); NEUTROPHILS ABSOLUTE MAN 19.37 K/mm3 (1.96-9.15); PLASMA CELL ABSOLUTE MAN 0.24 K/mm3 (0.00-0.00); PLASMA CELLS PERCENT MAN 1 % (0-0); SEG NEUTROPHILS PERCENT MAN 72 % (41-73); TOTAL CELLS COUNTED 100
[2023-08-19 06:31] LABS: Bun/Creatinine Ratio 40.8 (12.0-20.0); Calcium, Blood 8.6 mg/dL (8.5-10.1); Creatinine, Blood 0.61 mg/dL (0.40-1.00); Potassium, Blood 4.4 mmol/L (3.5-5.5)
[2023-08-19 07:32] VITALS: BP 134/63
--- NOTE | 2023-08-19 08:28 | NUR ---
SHIFT SUMMARY NOC. PT A/O X4. PT MIDLINE MEDIPORE C/D/I WITH LIGHT SEROUS DRAINAGE. STOMA PRODUCING GAS AND LIQUID AND SOFT MINIMAL OUTPUT. PT UP TO BATHROOM THIS SHIFT. CPN RUNNING. PAIN CONTROLLED BY [employer] COORDINATOR, PT USING REDUCED AMOUT SEE EMAR. PT NG TUBE CONNECTED TO LIS AND PRODUCING OUTPUT. RONA DRAIN HAS MINIMAL SEROUS OUTPUT. PT ABLE TO TOLERATE NG CLAMPED TO GO TO BR FOR 20 MINUTES WITHOUT NAUSEA. MEDICATED WITH BENADRYL FOR ITCHING. PT RESTED WITH EYES CLOSED AND CALL LIGHT IS REACH.
[2023-08-19] MEDS ORDERED: Furosemide 10 MG / ML 2ML Vial IV SCH (09:00)
[2023-08-19] MEDS ORDERED: Magnesium Hydroxide Conc 10 ML UDC PT SCH (09:00)
[2023-08-19 14:20] VITALS: BP 124/97
--- NOTE | 2023-08-19 16:41 | NUR ---
ngt removed at this time. pt tolerated well. denied nausea while clamped since 1030. has been ambulating well t/o the shift. pain well controlled with paper guillotine operator. ostomy appliance changed today. stoma is pink and beefy. skin tear found under appliance on removal with dried blood. pt unsure of when it happened. bandaid applied. midline dressing changed. medipore applied. incision cdi and well approximated. pt attitude improving throughout the shift smiling and up in the chair more frequently. tolerating clear liquids well. cpn continues to infuse.
--- NOTE | 2023-08-19 17:35 | NUR ---
PT PLACED BACK ON OXYGEN ONCE SHE LAYED BACK DOWN, SATS DROPPED TO 88-89% WHILE AT REST. 2L NASAL CANULA, SATS 94% ONCE ON OXYGEN.
[2023-08-19 19:44] VITALS: BP 130/68
--- NOTE | 2023-08-20 03:59 | NUR ---
SHIFT SUMMARY NO ACUTE CHANGES. PT RESTED WELL THIS SHIFT. USING DILAUDID TRAFFIC ANALYST FOR PAIN MANAGEMENT. MIDLINE MEDIPORE DRESSING REMAINS UNCHANGED WITH A SMALL AMOUNT OF OLD DRY SEROUS. RONA WITH SMALL AMOUNT OF SEROUS. OSTOMY STARTED PUTTING OUT LIQUID BROWN STOOL AND CONT TO PUT OUT FLATUS. TOLERATING SIPS OF CLEAR LIQS. PT INDEP TO BSC. IV ABX + CPN INFUSING PER ORDERS. USES CALL LIGHT APPROPRIATELY.
[2023-08-20 04:34] LABS: Hematocrit 34.9 % (33.0-51.0); Hemoglobin 11.6 g/dL (11.5-16.0); Mean Corpuscular HGB 29.6 pg (26.0-34.0); Mean Corpuscular HGB Conc 33.2 g/dL (31.5-36.5); Mean Corpuscular Volume 89 fL (80-100); Mean Platelet Volume 9.6 fL (9.1-12.4); Platelet Count 615 K/mm3 (150-400); RDW Coefficient Variation 14.3 % (11.7-14.2); Red Blood Cell Count 3.92 M/mm3 (3.80-5.20); White Blood Cell Count 23.39 K/mm3 (4.00-11.30)
[2023-08-20 04:47] VITALS: BP 116/61
[2023-08-20 04:56] LABS: Bun/Creatinine Ratio 44.9 (12.0-20.0); Calcium, Blood 8.5 mg/dL (8.5-10.1); Creatinine, Blood 0.58 mg/dL (0.40-1.00); Potassium, Blood 4.4 mmol/L (3.5-5.5)
[2023-08-20 05:52] LABS: BAND PERCENT MAN 9 % (0-8); BASOPHILS PERCENT MAN 0 % (0-2); EOSINOPHILS ABSOLUTE MAN 0.23 K/mm3 (0.00-0.68); EOSINOPHILS PERCENT MAN 1 % (0-6); LYMPHOCYTES PERCENT MAN 9 % (21-46); METAMYELOCYTE PERCENT MAN 3 % (0-0); MONOCYTES ABSOLUTE MAN 0.93 K/mm3 (0.16-1.47); MONOCYTES PERCENT MAN 4 % (4-13); MYELOCYTE ABSOLUTE MAN 1.16 K/mm3 (0.00-0.00); MYELOCYTE PERCENT MAN 5 % (0-0); NEUTROPHILS ABSOLUTE MAN 18.24 K/mm3 (1.96-9.15); SEG NEUTROPHILS PERCENT MAN 69 % (41-73); TOTAL CELLS COUNTED 100
[2023-08-20 07:37] VITALS: BP 130/76
--- NOTE | 2023-08-20 10:29 | NUR ---
Pt. is awake in bed and welcomes my visit. Spouse is present at bedside. Facilitate a review of Pt. progress. Pt. verbalized an expectation to be discharged home on Friday. Pt. displayed evidence of engagement and awareness. Pastoral encouragement is given. Prayed with Pt. Pt. verbalized gratitude for the spiritual care visit.
[2023-08-20 10:53] VITALS: BP 121/73
[2023-08-20 15:14] VITALS: BP 121/72
--- NOTE | 2023-08-20 18:09 | NUR ---
SUMMARY: PT IS POD8 EX LAP WITH RESECTION OF ANASTOMOSIS AND COLOSTOMY. A/O, VSS. SURGICAL SITES WNL. DARK BROWN OUTPUT FROM STOMA, PT EMPTIED BAG X1 HERSELF. DENIES N/V. RONA WNL, MINIMAL OUTPUT. NOT EMPTIED TODAY. PT HAS HAD SMALL BITES OF FULL LIQ DIET AND TONIGHT ATE ABOUT HALF OF REGULAR DIET TRAY. TPN TO DC TOMORROW. ABLE TO WEAN PT OFF DILAUDID STEM DRYER MAINTAINER SOME. GAVE OXYCODONE AND TYLENOL, PT ONLY PUSHED BUTTON X3 FOR BREAKTHROUGH PAIN (3MG TOTAL). STEM DRYER MAINTAINER CLEARED.PT TOOK X2 WALKS IN THE HALLS WITH . PLAN IS FOR DC FRIDAY WITH HH. NO ACUTE SAFETY CONCERNS, PT USES CALL LIGHT AND MAKES NEEDS KNOW.
[2023-08-20 19:32] VITALS: BP 127/74
[2023-08-21 02:47] VITALS: BP 136/66
--- NOTE | 2023-08-21 05:03 | NUR ---
SHIFT SUMMARY POD 9 EX LAP c RESECTION OF ANASTOMOSIS, END COLOSTOMY & APPY. NO ACUTE CHANGES OVERNIGHT. VS WNL FOR PT. TOLERATING MINIMAL REGULAR DIET. MIDLINE MEDIPORE c SCANT SEROUS DRAINAGE, OTHERWISE C/D/I. OSTOMY c OUTPUT OF BROWN LIQUID STOOL, PT MANAGING INDEPENDENTLY. AMBULATES INDEPENDENTLY, USE OF BEDSIDE COMMODE R/T LINE LIMITATIONS. MEDICATED FOR PAIN PER EMAR; ATTEMPTING TO WEAN TOWARDS ORAL PAIN CONTROL, PT NEEDED MINIMAL USE OF MOBILE HEAVY EQUIPMENT MECHANIC. ANTICIPATED D/C c HH. CALL LIGHT WITHIN REACH, BED IN LOWEST POSITION, WILL REPORT TO DAY RN.
[2023-08-21 05:06] LABS: Triglycerides 173 mg/dL (30-160)
[2023-08-21 07:19] VITALS: BP 119/67
[2023-08-21] MEDS ORDERED: NS 50 ML IV ONE (08:23)
[2023-08-21] MEDS ORDERED: Spironolactone 25 MG Tab PO SCH (09:00)
[2023-08-21] MEDS ORDERED: OxyCODONE HCL 5 MG TAB PO PRN (10:35)
[2023-08-21 13:59] VITALS: BP 122/70
--- NOTE | 2023-08-21 16:50 | NUR ---
ABD MIDLINE DRESSING CHANGED. BANDAID OVER RONA DRAIN REMOVAL SITE CHANGED.
--- NOTE | 2023-08-21 18:04 | NUR ---
SHIFT SUMMARY TPN DISCONTINUED TODAY, PT IS TOLERATING A REGULAR DIET. PT IS HAVING OUTPUT FROM HER OSTOMY. PT IS DOING HER OSTOMY CARE. PT IS TOLERATING PO PAIN MEDICATION, INSPECTOR WEIGHTS AND MEASURES DISCONTINUED. PT AMBULATES IN [place] INDEPENDENTLY.
[2023-08-21 18:55] VITALS: BP 116/64
[2023-08-22 04:30] VITALS: BP 115/73
[2023-08-22 04:48] LABS: Hematocrit 35.2 % (33.0-51.0); Hemoglobin 11.4 g/dL (11.5-16.0); Mean Corpuscular HGB 29.2 pg (26.0-34.0); Mean Corpuscular HGB Conc 32.4 g/dL (31.5-36.5); Mean Corpuscular Volume 90 fL (80-100); Mean Platelet Volume 9.5 fL (9.1-12.4); Platelet Count 635 K/mm3 (150-400); RDW Coefficient Variation 14.3 % (11.7-14.2); RDW Standard Deviation 47.2 fL (35.1-46.3); White Blood Cell Count 21.63 K/mm3 (4.00-11.30)
[2023-08-22 05:05] LABS: Bun/Creatinine Ratio 39.7 (12.0-20.0); Calcium, Blood 8.8 mg/dL (8.5-10.1); Creatinine, Blood 0.61 mg/dL (0.40-1.00); Potassium, Blood 4.7 mmol/L (3.5-5.5)
--- NOTE | 2023-08-22 05:40 | NUR ---
SHIFT SUMMARY POD 10 EX LAP c RESECTION OF ANASTOMOSIS, END COLOSTOMY & APPY. NO ACUTE CHANGES OVERNIGHT. VS WNL FOR PT. TOLERATING REGULAR DIET. MIDLINE MEDIPORE & BANDAID OVER OLD RONA SITE C/D/I. OSTOMY c OUTPUT OF BROWN, LIQUID STOOL, PT MANAGING INDEPENDENTLY. AMBULATES/VOIDS INDEPENDENTLY. MEDICATED FOR PAIN PER EMAR, PT REPORTS PAIN TOLERABLE. ANTICIPATED D/C c HH. CALL LIGHT WITHIN REACH, BED IN LOWEST POSITION, WILL REPORT TO DAY RN.
[2023-08-22 06:00] LABS: BAND PERCENT MAN 2 % (0-8); BASOPHILS PERCENT MAN 0 % (0-2); EOSINOPHILS PERCENT MAN 0 % (0-6); LYMPHOCYTES ABSOLUTE MAN 3.02 K/mm3 (0.84-5.20); LYMPHOCYTES PERCENT MAN 14 % (21-46); METAMYELOCYTE ABSOLUTE MAN 0.64 K/mm3 (0.00-0.00); METAMYELOCYTE PERCENT MAN 3 % (0-0); MONOCYTES ABSOLUTE MAN 1.73 K/mm3 (0.16-1.47); MONOCYTES PERCENT MAN 8 % (4-13); MYELOCYTE ABSOLUTE MAN 1.08 K/mm3 (0.00-0.00); MYELOCYTE PERCENT MAN 5 % (0-0); NEUTROPHILS ABSOLUTE MAN 15.14 K/mm3 (1.96-9.15); SEG NEUTROPHILS PERCENT MAN 68 % (41-73); TOTAL CELLS COUNTED 100
[2023-08-22 07:21] VITALS: BP 119/68
--- NOTE | 2023-08-22 10:00 | NUR ---
DR. GALEANA NOTIFIED THAT STOMA APPEARS PALE. DR. GALEANA ASSESSED STOMA SITE AND STATED IT LOOKS OK AND TO CONTINUE WITH PLAN FOR DISCHARGE. PT IS PRODUCING STOOL AND FLATUS.
[2023-08-22] MEDS ORDERED: TYLENOL325 MG PO (12:31)
[2023-08-22] MEDS ORDERED: OXYC5 PO (12:33)
--- NOTE | 2023-08-22 14:00 | NUR ---
PRIOR TO DISCHARGE OSTOMY APPLIANCE WAS CHANGED. VIEW OF STOMA WAS OBSCURED BY MOOSE WAFER. WHEN OSTOMY APPLIANCE WAS REMOVED STOMA IS RED AND BEEFY.
[2023-08-22 14:18] VITALS: BP 114/63
--- NOTE | 2023-08-22 14:55 | NUR ---
PICC removed WNL, D/C instructions reviewed with patient and . Ostomy supplies, dressings and bandaides provided. Patient and spouse verbalize understanding and deny questions. Assisted to car via WC with belongings.
== END 2023-08-22 14:45 | disposition home health service (06) | DRG 330 ==
LOC: MEDS 05:42 → SURS 05:42 → MEDS 06:04 → PRE IP 07:30 → SURS 12:43 → ICUE 08-12 19:17 → SURS 08-13 21:12
PROVIDERS: Surgery; ADMIT Surgery
PROC: 8E0W4CZ Robotic Assisted Procedure of Trunk Region, Percutaneous Endoscopic Approach (ICD-10-PCS; 2023-08-06)
PROC: 0DBM4ZZ Excision of Descending Colon, Percutaneous Endoscopic Approach (ICD-10-PCS; principal; 2023-08-06 07:30)
PROC: 0DJD4ZZ Inspection of Lower Intestinal Tract, Percutaneous Endoscopic Approach (ICD-10-PCS; 2023-08-12)
PROC: 0DBM0ZZ Excision of Descending Colon, Open Approach (ICD-10-PCS; 2023-08-12)
PROC: 0DTJ0ZZ Resection of Appendix, Open Approach (ICD-10-PCS; 2023-08-12)
DX: Z43.3 Encounter for attention to colostomy (principal); E87.1 Hypo-osmolality and hyponatremia; K56.609 Unspecified intestinal obstruction, unspecified as to partial versus complete obstruction; K91.89 Other postprocedural complications and disorders of digestive system; I10 Essential (primary) hypertension; D12.0 Benign neoplasm of cecum; D12.2 Benign neoplasm of ascending colon; K57.30 Diverticulosis of large intestine without perforation or abscess without bleeding; D12.4 Benign neoplasm of descending colon; Z53.31 Laparoscopic surgical procedure converted to open procedure
CPT/HCPCS: 36415; 36569; 74019; 74177; 80048; 80053; 80069; 80076; 81001; 83735; 84100; 84145; 84478; 85025; 85027; 87086; 88304; 94640; 94664; 94760; 94762; 97110; 97116; 97162; 97166; 97530; 97535; A9270; C1751; J0694; J1100; J1170; J1200; J1644; J1650; J1885; J1940; J2250; J2371; J2405; J2543; J2704; J3010; J3411; J7050; J7060; J7120; Q9967

== ENCOUNTER 2025-06-24 10:49 | Day surgery (SDC) | payer OTHER ==
[~2025-06-24] VITALS: Ht 170.2 cm; Wt 91.6 kg
[~2025-06-24 10:49] MED LIST changes: +OXYC5 PO; +Oxytocin 10 Unit / ML Vial ONE; +TYLENOL325 MG PO
[2025-06-24] MEDS ORDERED: BUSPIRONE HCL10 M6 PO (11:13)
[2025-06-24] MEDS ORDERED: CITALOPRAM HBR20 M9 PO (11:14)
[2025-06-24] MEDS ORDERED: OMEP20ER PO (11:15)
[2025-06-24] MEDS ORDERED: FentaNYL Citrate 50 MCG/ML 2 ML Injection ONE (12:06)
[2025-06-24] MEDS ORDERED: Dexamethasone Sod Phos 10 MG/ML 1ML VIAL ONE (12:13)
[2025-06-24] MEDS ORDERED: Ondansetron HCl 2 MG / ML 2ML Vial ONE (12:13)
[2025-06-24] MEDS ORDERED: Ketorolac Tromethamine 30mg Vial ONE (12:35)
[2025-06-24 13:10] VITALS: BP 165/79
--- NOTE | 2025-06-24 14:12 | NUR ---
06/24/25 1412 Les Rowe PT INSTRUCTED TO MONITOR B/P AT HOME, AND FOLLOW UP WITH PCP NEEDED . DR. ROSENBERG CONSULTED REGARDING HYPERTENSION AND APPROVED D/C WITH CURRENT B/P. PT DENIED CP, SOB, WEAKNESS, NAUSEA, DIZZINESS, PRUITT, VISUAL DISTURBANCE, AND OTHER SYMPTOMS. SHE REPORTED PAIN TOLERABLE AND EXPRESSED READINESS TO RETURN HOME.
== END 2025-06-24 13:50 | disposition home or self-care (01) ==
LOC: ORSCSDS 10:49
PROVIDERS: Obstetrics & Gynecology
PROC: 0UB98ZZ Excision of Uterus, Via Natural or Artificial Opening Endoscopic (ICD-10-PCS; principal; 2025-06-24 12:30)
PROC: 0UDB8ZX Extraction of Endometrium, Via Natural or Artificial Opening Endoscopic, Diagnostic (ICD-10-PCS; principal; 2025-06-24 12:30)
DX: R93.89 Abnormal findings on diagnostic imaging of other specified body structures (principal); N84.0 Polyp of corpus uteri; K21.9 Gastro-esophageal reflux disease without esophagitis; I10 Essential (primary) hypertension; F41.8 Other specified anxiety disorders; E78.2 Mixed hyperlipidemia; Z79.82 Long term (current) use of aspirin; E66.9 Obesity, unspecified; Z68.32 Body mass index [BMI] 32.0-32.9, adult; Z79.899 Other long term (current) drug therapy; Z87.891 Personal history of nicotine dependence
CPT/HCPCS: 88305; J1100; J1885; J2405; J2590; J2704; J3010; J7120